=== PATIENT | female | born 1955 | race African-American/Black ===

== ENCOUNTER 2019-03-07 02:37 | Observation (INO) ==
[2019-03-07] MEDS ORDERED: PANTOPRAZOLE 40 MG VIAL IV STA (03:08)
[2019-03-07 03:15] LABS: Basophils % 0.4 % (0.0-0.8); Eosinophils # 0.1 10*3/uL (0.0-0.87); Eosinophils % 0.9 % (0.00-10.9); Hematocrit 34.1 VOL% (35.7-47.0); Immature Granulocytes % 0.9 %; Immature Granulocytes Absolute 0.05 #; Lymphocytes % 36.7 % (21.3-54.2); Mean Corpuscular HGB Conc 35.2 GM/DL (32-36); Mean Corpuscular Volume 88.8 FL (87-102); Mean Platelet Volume 8.8 FL (9.6-12.0); Monocytes % 13.5 % (1.7-12.7); Neutrophils % 47.6 % (38.7-73.9); Platelet Count 239 T/CUMM (130-400); Red Blood Count 3.84 MC/CUMM (3.8-5.5); Red Cell Distribution Width 12.6 % (9.3-17.3); White Blood Count 5.6 T/CUMM (4-12)
[2019-03-07 03:34] LABS: Albumin 3.2 G/DL (3.4-5.0); Bilirubin,Total 0.5 MG/DL (0.2-1.0); Calcium 8.1 MG/DL (8.5-10.1); Osmolality,Calculated 241.1 MOS/KG (273-304); Total Protein 6.6 G/DL (6.4-8.3)
[2019-03-07] MEDS ORDERED: NITROGLYCERIN SL 0.4 MG TABLET SL PRN (07:23)
[2019-03-07] MEDS ORDERED: traZODone 50 MG TABLET PO PRN (07:23)
[2019-03-07] MEDS ORDERED: ONDANSETRON 4 MG/2 ML VIAL IV PRN (07:23)
[2019-03-07] MEDS ORDERED: ACETAMINOPHEN 325 MG TABLET PO PRN (07:23)
[2019-03-07] MEDS ORDERED: MORPHINE 4 MG/1 ML VIAL IV PRN (07:23)
[2019-03-07] MEDS ORDERED: INFLUENZA VIRUS VACCINE 0.5 ML SYRINGE IM ONE (07:34)
[2019-03-07 07:58] LABS: Risk Ratio 1.96; Thyroid Stimulating Hormone 0.412 uIU/ml (0.358-3.74); VLDL CHOLESTEROL 21.2 MG/DL
[2019-03-07] MEDS: ENOXAPARIN 40 MG/0.4 ML SYRINGE SUBCUT SCH (08:11)
[2019-03-07] MEDS: ACETAMINOPHEN 500 MG TABLET PO SCH (08:11)
[2019-03-07] MEDS: BISACODYL 5 MG TABLET PO SCH (08:12)
[2019-03-07] MEDS: METOPROLOL TARTRATE 100 MG TABLET PO SCH (08:12)
[2019-03-07] MEDS: PANTOPRAZOLE 40 MG TABLET PO SCH (08:12)
[2019-03-07] MEDS: DEXAMETHASONE 0.5 MG TABLET PO SCH (08:12)
[2019-03-07] MEDS: amLODIPine 10 MG TABLET PO SCH (08:12)
[2019-03-07] MEDS: SODIUM CHLORIDE 0.9% 1,000 ML IV SCH ×2 (08:13→16:37)
[2019-03-07 08:44] LABS: Apearance,Urine CLEAR (Clear); Bacteria,Urine Occasional /HPF (Few); Bilirubin,Urine Negative (Negative); Blood, Urine Negative (Negative); Glucose,Urine (UA) Negative (Negative); Ketones,Urine Negative (Negative); Nitrite,Urine Negative (Negative); Protein,Urine Negative; RBC,Urine 1 /HPF (0-4); Squamous Epithelial Cell,Urine Occasional /HPF (0-10); Urine Color Straw (Yellow); Urine Specific Gravity 1.005 (1.001-1.035); Urine Urobilinogen < 2.0 EU/DL (0.2-1.0); WBC,Urine <1 /HPF (0-6)
[2019-03-07 10:24] LABS: Osmolality,Calculated 242.1 MOS/KG (273-304)
[2019-03-07 19:27] LABS: Calcium 7.8 MG/DL (8.5-10.1); Osmolality,Calculated 251.5 MOS/KG (273-304)
[2019-03-07 21:11] LABS: Calcium 7.8 MG/DL (8.5-10.1); Osmolality,Calculated 254.2 MOS/KG (273-304)
[2019-03-08] MEDS: SODIUM CHLORIDE 0.9% 1,000 ML IV SCH ×3 (00:24→16:41)
[2019-03-08 04:36] LABS: Basophils % 0.2 % (0.0-0.8); Hematocrit 32.1 VOL% (35.7-47.0); Hemoglobin 11.2 GM/DL (12.0-16.0); Immature Granulocytes % 0.7 %; Immature Granulocytes Absolute 0.03 #; Lymphocytes # 0.9 10*3/uL (1.4-4.0); Lymphocytes % 21.9 % (21.3-54.2); Mean Corpuscular HGB Conc 34.9 GM/DL (32-36); Mean Corpuscular Volume 89.2 FL (87-102); Mean Platelet Volume 9.1 FL (9.6-12.0); Monocytes % 10.8 % (1.7-12.7); Neutrophils % 66.4 % (38.7-73.9); Platelet Count 260 T/CUMM (130-400); Red Cell Distribution Width 12.5 % (9.3-17.3); White Blood Count 4.1 T/CUMM (4-12)
[2019-03-08 05:11] LABS: Calcium 7.6 MG/DL (8.5-10.1); Osmolality,Calculated 261.5 MOS/KG (273-304)
[2019-03-08] MEDS: CALCIUM (CITRATE) 200 MG TABLET PO SCH ×2 (08:35→21:35)
[2019-03-08] MEDS: DEXAMETHASONE 0.5 MG TABLET PO SCH (08:36)
[2019-03-08] MEDS: amLODIPine 10 MG TABLET PO SCH (08:36)
[2019-03-08] MEDS: ACETAMINOPHEN 500 MG TABLET PO SCH (08:36)
[2019-03-08] MEDS: PANTOPRAZOLE 40 MG TABLET PO SCH (08:36)
[2019-03-08] MEDS: ENOXAPARIN 40 MG/0.4 ML SYRINGE SUBCUT SCH (08:37)
[2019-03-08] MEDS: BISACODYL 5 MG TABLET PO SCH (08:37)
[2019-03-08] MEDS: METOPROLOL TARTRATE 100 MG TABLET PO SCH (08:37)
[2019-03-09] MEDS ORDERED: METOPROLOL TARTRATE 5 MG/5 ML VIAL IV ONE (03:00)
[2019-03-09] MEDS: SODIUM CHLORIDE 0.9% 1,000 ML IV SCH ×2 (03:09→07:24)
[2019-03-09 05:35] LABS: Calcium 7.9 MG/DL (8.5-10.1); Osmolality,Calculated 273.5 MOS/KG (273-304)
[2019-03-09 05:41] LABS: Basophils % 0.1 % (0.0-0.8); Hematocrit 30.2 VOL% (35.7-47.0); Hemoglobin 10.1 GM/DL (12.0-16.0); Immature Granulocytes % 0.2 %; Immature Granulocytes Absolute 0.02 #; Lymphocytes # 1.2 10*3/uL (1.4-4.0); Lymphocytes % 13.2 % (21.3-54.2); Mean Corpuscular HGB Conc 33.4 GM/DL (32-36); Mean Corpuscular Volume 92.6 FL (87-102); Mean Platelet Volume 9.4 FL (9.6-12.0); Monocytes % 5.4 % (1.7-12.7); Neutrophils % 81.1 % (38.7-73.9); Platelet Count 318 T/CUMM (130-400); Red Blood Count 3.26 MC/CUMM (3.8-5.5); Red Cell Distribution Width 13.2 % (9.3-17.3); White Blood Count 8.9 T/CUMM (4-12)
[2019-03-09] MEDS: CALCIUM (CITRATE) 200 MG TABLET PO SCH ×4 (07:23→20:31)
[2019-03-09] MEDS: DEXAMETHASONE 0.5 MG TABLET PO SCH ×2 (07:24→08:39)
[2019-03-09] MEDS: BISACODYL 5 MG TABLET PO SCH ×2 (07:24→08:40)
[2019-03-09] MEDS: ACETAMINOPHEN 500 MG TABLET PO SCH ×2 (07:28→08:41)
[2019-03-09] MEDS: METOPROLOL TARTRATE 100 MG TABLET PO SCH ×2 (07:28→08:40)
[2019-03-09] MEDS: PANTOPRAZOLE 40 MG TABLET PO SCH ×2 (07:29→08:41)
[2019-03-09] MEDS: amLODIPine 10 MG TABLET PO SCH ×2 (07:29→08:41)
[2019-03-09] MEDS: ENOXAPARIN 40 MG/0.4 ML SYRINGE SUBCUT SCH ×2 (07:30→08:41)
[2019-03-09] MEDS ORDERED: MAGNESIUM SULF RIDER 2 GM in PREMIX 1 EACH IV PRN (12:12)
[2019-03-09] MEDS ORDERED: MAGNESIUM SULF RIDER 4 GM in PREMIX 1 EACH IV PRN (12:12)
[2019-03-09] MEDS: ENOXAPARIN 60 MG/0.6 ML SYRINGE SUBCUT SCH (18:38)
[2019-03-10 06:05] LABS: Basophils % 0.1 % (0.0-0.8); Hematocrit 28.9 VOL% (35.7-47.0); Hemoglobin 9.9 GM/DL (12.0-16.0); Immature Granulocytes % 0.4 %; Immature Granulocytes Absolute 0.03 #; Lymphocytes # 1.3 10*3/uL (1.4-4.0); Lymphocytes % 18.6 % (21.3-54.2); Mean Corpuscular HGB Conc 34.3 GM/DL (32-36); Mean Corpuscular Volume 92.6 FL (87-102); Mean Platelet Volume 9.4 FL (9.6-12.0); Neutrophils % 72.9 % (38.7-73.9); Platelet Count 311 T/CUMM (130-400); Red Blood Count 3.12 MC/CUMM (3.8-5.5); Red Cell Distribution Width 13.6 % (9.3-17.3); White Blood Count 7.1 T/CUMM (4-12)
[2019-03-10] MEDS: ENOXAPARIN 60 MG/0.6 ML SYRINGE SUBCUT SCH (06:26)
[2019-03-10 06:44] LABS: Calcium 8.6 MG/DL (8.5-10.1)
[2019-03-10] MEDS: DEXAMETHASONE 0.5 MG TABLET PO SCH (09:13)
[2019-03-10] MEDS: ACETAMINOPHEN 500 MG TABLET PO SCH (09:13)
[2019-03-10] MEDS: METOPROLOL TARTRATE 100 MG TABLET PO SCH (09:13)
[2019-03-10] MEDS: PANTOPRAZOLE 40 MG TABLET PO SCH (09:14)
[2019-03-10] MEDS: BISACODYL 5 MG TABLET PO SCH (09:14)
[2019-03-10] MEDS: CALCIUM (CITRATE) 200 MG TABLET PO SCH (09:14)
[2019-03-10] MEDS: amLODIPine 10 MG TABLET PO SCH (09:14)
[2019-03-10] MEDS ORDERED: POTASSIUM PHOS/SOD PHOS POWDER 250 MG PACK PO ONE (09:35)
[2019-03-10 11:20] VITALS: BP 131/60
[2019-03-10] MEDS ORDERED: ASPIRIN EC 81 MG TABLET PO SCH (11:20)
== END 2019-03-10 16:27 | disposition home or self-care (01) ==
LOC: N.EDINP 02:37 → N.ED 02:37 → SUATTDRO 06:01 → N.TELEN 06:36
PROVIDERS: ADMIT Internal Medicine; ATTEND Hospitalist

== ENCOUNTER 2019-10-05 12:20 | Inpatient (IN) ==
[2019-10-05] MEDS ORDERED: SODIUM CHLORIDE 0.9% 1,000 ML IV STA (12:51)
[2019-10-05 13:28] LABS: Basophils % 0.3 % (0.0-0.8); Eosinophils % 0.3 % (0.00-10.9); Hematocrit 38.4 VOL% (35.7-47.0); Hemoglobin 11.8 GM/DL (12.0-16.0); Immature Granulocytes % 0.9 %; Lymphocytes # 2.3 10*3/uL (1.4-4.0); Lymphocytes % 21.2 % (21.3-54.2); Mean Corpuscular HGB Conc 30.7 GM/DL (32-36); Mean Corpuscular Volume 73.1 FL (87-102); Mean Platelet Volume 9.1 FL (9.6-12.0); Monocytes % 8.2 % (1.7-12.7); Neutrophils % 69.1 % (38.7-73.9); Platelet Count 341 T/CUMM (130-400); Red Blood Count 5.25 MC/CUMM (3.8-5.5); Red Cell Distribution Width 21.4 % (9.3-17.3); White Blood Count 10.8 T/CUMM (4-12)
[2019-10-05] MEDS ORDERED: ONDANSETRON 4 MG/2 ML VIAL ONE (14:03)
[2019-10-05] MEDS ORDERED: HYDROmorphone 2 MG/1 ML VIAL ONE (14:04)
[2019-10-05] MEDS ORDERED: FAMOTIDINE 20 MG/2 ML VIAL IV STA (14:08)
[2019-10-05] MEDS ORDERED: PIPERACILLIN/TAZOBACTAM 3,375 MG in SODIUM CHLORIDE 0.9% 100 ML IV STA ×2 (14:09→14:31)
[2019-10-05] MEDS ORDERED: ONDANSETRON 4 MG/2 ML VIAL IV STA (14:09)
[2019-10-05] MEDS ORDERED: HYDROmorphone 2 MG/1 ML VIAL IV STA (14:09)
[2019-10-05 14:11] LABS: Alanine Aminotransferase 14 U/L (13-56); Albumin 2.6 G/DL (3.4-5.0); Alkaline Phosphatase 63 U/L (45-117); Aspartate Amino Transferase 7 U/L (0-37); Bilirubin,Total < 0.39 MG/DL (0.2-1.0); Blood Urea Nitrogen 18 MG/DL (7-18); Calcium 8.3 MG/DL (8.5-10.1); Estimated Glom Filtration Rate 59 ML/MIN; Glucose 107 MG/DL (74-106); Osmolality,Calculated 269.2 MOS/KG (273-304); Total Protein 6.6 G/DL (6.4-8.3)
[2019-10-05] MEDS ORDERED: metroNIDAZOLE INJ 500 MG in PREMIX 1 EACH IV ONE (14:24)
[2019-10-05] MEDS ORDERED: KETOROLAC 15 MG/1 ML VIAL IV PRN (14:27)
[2019-10-05] MEDS ORDERED: ONDANSETRON 4 MG/2 ML VIAL IV PRN (14:27)
[2019-10-05] MEDS ORDERED: ACETAMINOPHEN 325 MG TABLET PO PRN (14:27)
[2019-10-05] MEDS ORDERED: BISACODYL 5 MG TABLET PO PRN (14:27)
[2019-10-05] MEDS ORDERED: ALBUTEROL/IPRATROPIUM 3 ML NEB RESP TX PRN (14:27)
[2019-10-05] MEDS ORDERED: BUPIVACAINE 0.25% /EPI 10 ML VIAL ONE (14:38)
[2019-10-05] MEDS ORDERED: LIDOCAINE 1%/EPI INJ 20 ML VIAL ONE (14:38)
[2019-10-05] MEDS ORDERED: TISSUE ADHESIVE 1 EACH APPLICATOR TOP ONE (14:38)
[2019-10-05] MEDS ORDERED: PANTOPRAZOLE 40 MG VIAL IV STA (14:49)
[2019-10-05] MEDS ORDERED: SODIUM CHLORIDE 0.9% 100 ML IV ONE (15:07)
[2019-10-05] MEDS ORDERED: BUPIVACAINE MPF 0.5% /EPI 30 ML VIAL ONE (15:07)
[2019-10-05] MEDS ORDERED: DEXAMETHASONE 4 MG/1 ML VIAL ONE (15:07)
[2019-10-05] MEDS ORDERED: SEVOFLURANE 1 UNIT/15 MINUTE INH ONE (17:38)
[2019-10-05] MEDS ORDERED: CALCIUM CHLORIDE 1,000 MG/10 ML VIAL IV ONE (17:38)
[2019-10-05] MEDS ORDERED: propofoL 200 MG/20 ML VIAL IV ONE (17:38)
[2019-10-05] MEDS ORDERED: ALBUMIN 5% 12.5 GM/250 ML VIAL IV ONE (17:38)
[2019-10-05] MEDS ORDERED: ePHEDrine 50 MG/ML AMP ONE (17:39)
[2019-10-05] MEDS ORDERED: ROCURONIUM 100 MG/10 ML VIAL IV ONE (17:39)
[2019-10-05] MEDS ORDERED: SODIUM CHLORIDE 0.9% 1,000 ML IV ONE (17:39)
[2019-10-05] MEDS ORDERED: SUCCINYLCHOLINE 200 MG/10 ML VIAL ONE (17:39)
[2019-10-05] MEDS ORDERED: KETAMINE 500 MG/10 ML VIAL ONE (17:39)
[2019-10-05] MEDS ORDERED: LACTATED RINGERS 1,000 ML IV ONE (17:39)
[2019-10-05] MEDS ORDERED: PHENYLEPHRINE 1 MG/10 ML SYRINGE IV ONE (17:39)
[2019-10-05] MEDS ORDERED: HYDROCORTISONE 100 MG VIAL ONE (17:39)
[2019-10-05] MEDS ORDERED: GLYCOPYRROLATE 0.4 MG/2 ML VIAL ONE (17:40)
[2019-10-05] MEDS ORDERED: NEOSTIGMINE 10 MG/10 ML VIAL ONE (17:40)
[2019-10-05] MEDS ORDERED: MIDAZOLAM 2 MG/2 ML VIAL ONE (17:43)
[2019-10-05] MEDS: PIPERACILLIN/TAZOBACTAM 3,375 MG in SODIUM CHLORIDE 0.9% 100 ML IV SCH (22:55)
[2019-10-05] MEDS: CLARITHROMYCIN 500 MG TABLET PO SCH (22:56)
[2019-10-05] MEDS: AMOXICILLIN 500 MG CAPSULE PO SCH (22:56)
[2019-10-05] MEDS: HYDROmorphone 2 MG/1 ML VIAL IV PRN (23:35)
[2019-10-06] MEDS: HYDROmorphone 2 MG/1 ML VIAL IV PRN ×3 (04:09→17:48)
[2019-10-06] MEDS: LACTATED RINGERS 1,000 ML IV SCH ×4 (04:13→16:04)
[2019-10-06] MEDS: PANTOPRAZOLE 40 MG VIAL IV SCH ×3 (04:22→20:31)
[2019-10-06] MEDS: PIPERACILLIN/TAZOBACTAM 3,375 MG in SODIUM CHLORIDE 0.9% 100 ML IV SCH ×3 (05:18→20:33)
[2019-10-06 07:02] LABS: Basophils % 0.1 % (0.0-0.8); Hematocrit 36.3 VOL% (35.7-47.0); Immature Granulocytes % 0.6 %; Immature Granulocytes Absolute 0.08 #; Lymphocytes # 0.7 10*3/uL (1.4-4.0); Lymphocytes % 4.7 % (21.3-54.2); Mean Corpuscular HGB Conc 30.6 GM/DL (32-36); Mean Corpuscular Volume 74.2 FL (87-102); Monocytes % 8.6 % (1.7-12.7); Platelet Count 272 T/CUMM (130-400); Red Blood Count 4.89 MC/CUMM (3.8-5.5); Red Cell Distribution Width 21.8 % (9.3-17.3); White Blood Count 14.1 T/CUMM (4-12)
[2019-10-06 07:03] LABS: Hemoglobin 11.1 GM/DL (12.0-16.0)
[2019-10-06 07:08] LABS: Band Neutrophils 4 % (0-10); Hypochromasia 1+; Lymphocytes 3 % (20-55); Ovalocytes Slight; Platelet Estimate Adequate; Segmented Neutrophils 82 % (50-85); Total Cells Counted 100
[2019-10-06] MEDS: AMOXICILLIN 500 MG CAPSULE PO SCH ×2 (09:31→20:32)
[2019-10-06] MEDS: CLARITHROMYCIN 500 MG TABLET PO SCH ×2 (09:32→20:36)
[2019-10-06] MEDS: DEXAMETHASONE 0.5 MG TABLET PO SCH (09:32)
[2019-10-06] MEDS: METOPROLOL TARTRATE 100 MG TABLET PO SCH (09:32)
[2019-10-06] MEDS: amLODIPine 10 MG TABLET PO SCH (09:32)
[2019-10-06] MEDS: ENOXAPARIN 30 MG/0.3 ML SYRINGE SUBCUT SCH (16:04)
[2019-10-06 17:49] LABS: Albumin 2.6 G/DL (3.4-5.0); Bilirubin,Total 0.8 MG/DL (0.2-1.0); Calcium 9.3 MG/DL (8.5-10.1); Osmolality,Calculated 268.2 MOS/KG (273-304)
[2019-10-07] MEDS: HYDROmorphone 2 MG/1 ML VIAL IV PRN ×3 (00:41→23:09)
[2019-10-07] MEDS: LACTATED RINGERS 1,000 ML IV SCH ×2 (04:17→10:45)
[2019-10-07] MEDS: PIPERACILLIN/TAZOBACTAM 3,375 MG in SODIUM CHLORIDE 0.9% 100 ML IV SCH ×3 (04:19→21:14)
[2019-10-07 06:12] LABS: Basophils % 0.2 % (0.0-0.8); Hemoglobin 9.7 GM/DL (12.0-16.0); Immature Granulocytes % 0.8 %; Immature Granulocytes Absolute 0.16 #; Lymphocytes # 0.8 10*3/uL (1.4-4.0); Lymphocytes % 3.9 % (21.3-54.2); Mean Corpuscular HGB Conc 30.3 GM/DL (32-36); Mean Corpuscular Volume 73.6 FL (87-102); Mean Platelet Volume 9.9 FL (9.6-12.0); Monocytes % 5.9 % (1.7-12.7); Neutrophils % 89.2 % (38.7-73.9); Platelet Count 290 T/CUMM (130-400); Red Blood Count 4.35 MC/CUMM (3.8-5.5); Red Cell Distribution Width 21.5 % (9.3-17.3); White Blood Count 19.6 T/CUMM (4-12)
[2019-10-07 06:32] LABS: Calcium 8.8 MG/DL (8.5-10.1); Osmolality,Calculated 260.8 MOS/KG (273-304)
[2019-10-07 06:37] LABS: Band Neutrophils 8 % (0-10); Hypochromasia 1+; Lymphocytes 3 % (20-55); Microcytosis 1+; Segmented Neutrophils 84 % (50-85); Target Cells Slight; Total Cells Counted 100
[2019-10-07 06:38] LABS: Acanthocytes Few; Burr Cells Slight; Platelet Estimate Normal
[2019-10-07] MEDS ORDERED: LACTATED RINGERS 1,000 ML IV ONE (07:57)
[2019-10-07] MEDS ORDERED: SODIUM CHLORIDE 0.9% 1,000 ML IV ONE (08:13)
[2019-10-07] MEDS: PANTOPRAZOLE 40 MG VIAL IV SCH ×3 (09:40→21:35)
[2019-10-07] MEDS: amLODIPine 10 MG TABLET PO SCH ×2 (09:41→15:15)
[2019-10-07] MEDS: DEXAMETHASONE 0.5 MG TABLET PO SCH ×2 (09:41→15:11)
[2019-10-07] MEDS: METOPROLOL TARTRATE 100 MG TABLET PO SCH ×2 (09:41→15:11)
[2019-10-07] MEDS: CLARITHROMYCIN 500 MG TABLET PO SCH ×3 (09:41→21:14)
[2019-10-07] MEDS: AMOXICILLIN 500 MG CAPSULE PO SCH ×3 (09:42→21:14)
[2019-10-07] MEDS: SODIUM CHLORIDE 0.9% 1,000 ML IV SCH ×2 (09:42→19:15)
[2019-10-07] MEDS: ENOXAPARIN 30 MG/0.3 ML SYRINGE SUBCUT SCH (15:09)
[2019-10-08] MEDS: SODIUM CHLORIDE 0.9% 1,000 ML IV SCH ×4 (02:17→23:40)
[2019-10-08] MEDS: HYDROmorphone 2 MG/1 ML VIAL IV PRN ×2 (04:00→20:05)
[2019-10-08] MEDS: PIPERACILLIN/TAZOBACTAM 3,375 MG in SODIUM CHLORIDE 0.9% 100 ML IV SCH ×3 (05:10→21:54)
[2019-10-08 06:48] LABS: Basophils % 0.1 % (0.0-0.8); Hematocrit 30.9 VOL% (35.7-47.0); Hemoglobin 9.8 GM/DL (12.0-16.0); Immature Granulocytes % 1.7 %; Immature Granulocytes Absolute 0.38 #; Lymphocytes # 0.6 10*3/uL (1.4-4.0); Lymphocytes % 2.9 % (21.3-54.2); Mean Corpuscular HGB Conc 31.7 GM/DL (32-36); Mean Corpuscular Volume 72.4 FL (87-102); Monocytes % 5.6 % (1.7-12.7); NRBC # 0.06 10*3/uL; Neutrophils % 89.7 % (38.7-73.9); Platelet Count 335 T/CUMM (130-400); Red Blood Count 4.27 MC/CUMM (3.8-5.5); Red Cell Distribution Width 21.2 % (9.3-17.3); White Blood Count 22.3 T/CUMM (4-12)
[2019-10-08 07:07] LABS: Calcium 8.3 MG/DL (8.5-10.1); Osmolality,Calculated 260.8 MOS/KG (273-304)
[2019-10-08 07:19] LABS: Band Neutrophils 6 % (0-10); Lymphocytes 3 % (20-55); Segmented Neutrophils 87 % (50-85); Total Cells Counted 100
[2019-10-08 07:22] LABS: Anisocytosis 1+; Atypical Lymphocytes 1+; Hypersegmented Neutrophil Few; Hypochromasia 1+; Microcytosis 1+; Ovalocytes 1+; Platelet Estimate Normal
[2019-10-08] MEDS ORDERED: METOPROLOL TARTRATE 5 MG/5 ML VIAL IV ONE ×2 (09:43→14:34)
[2019-10-08] MEDS ORDERED: cefOXitin 2,000 MG in SYRINGE 1 EACH IV ONE (09:45)
[2019-10-08] MEDS: METOPROLOL TARTRATE 100 MG TABLET PO SCH (10:07)
[2019-10-08] MEDS ORDERED: DILTIAZEM 50 MG/10 ML VIAL IV ONE (11:07)
[2019-10-08] MEDS ORDERED: DILTIAZEM 25 MG/5 ML VIAL IV ONE (11:15)
[2019-10-08] MEDS ORDERED: DEXTROSE 10% 250 ML BAG IV ONE (11:21)
[2019-10-08] MEDS ORDERED: DEXTROSE 10% 250 ML IV ONE (11:23)
[2019-10-08] MEDS: dilTIAZem Drip 125 MG/125 ML PREMIX IV SCH ×2 (11:40→21:57)
[2019-10-08] MEDS: AMOXICILLIN 500 MG CAPSULE PO SCH (11:52)
[2019-10-08] MEDS: DEXAMETHASONE 0.5 MG TABLET PO SCH (11:53)
[2019-10-08] MEDS: amLODIPine 10 MG TABLET PO SCH (11:53)
[2019-10-08] MEDS: CLARITHROMYCIN 500 MG TABLET PO SCH (11:53)
[2019-10-08] MEDS: PANTOPRAZOLE 40 MG VIAL IV SCH ×2 (11:54→21:45)
[2019-10-08] MEDS ORDERED: DEXMEDETOMIDINE 200 MCG/2 ML VIAL ONE (12:26)
[2019-10-08] MEDS ORDERED: SUGAMMADEX 200 MG/2 ML VIAL IV ONE (13:10)
[2019-10-08 14:19] LABS: Apearance,Urine CLEAR (Clear); Bilirubin,Urine Negative (Negative); Blood, Urine Negative (Negative); Glucose,Urine (UA) 50 mg/dL (Negative); Ketones,Urine Negative (Negative); Nitrite,Urine Negative (Negative); Protein,Urine Negative; RBC,Urine 1 /HPF (0-4); Urine Color Yellow (Yellow); Urine Specific Gravity 1.015 (1.001-1.035); Urine Urobilinogen < 2.0 EU/DL (0.2-1.0); WBC,Urine 1 /HPF (0-6)
[2019-10-08] MEDS ORDERED: ESMOLOL 100 MG/10 ML VIAL IV ONE (14:34)
[2019-10-08] MEDS ORDERED: PHENYLEPHRINE DRIP 20 MG/250 ML PREMIX IV ONE (14:34)
[2019-10-08] MEDS ORDERED: fentaNYL 100 MCG/2 ML VIAL ONE (14:34)
[2019-10-08] MEDS ORDERED: DESFLURANE 1 UNIT/15 MINUTE INH ONE (14:34)
[2019-10-08] MEDS ORDERED: LACTATED RINGERS 1,000 ML IV ONE (14:35)
[2019-10-08] MEDS ORDERED: ETOMIDATE 40 MG/20 ML VIAL IV ONE (14:35)
[2019-10-08] MEDS ORDERED: ROCURONIUM 100 MG/10 ML VIAL IV ONE (14:35)
[2019-10-08] MEDS ORDERED: SUCCINYLCHOLINE 200 MG/10 ML VIAL ONE (14:35)
[2019-10-08] MEDS ORDERED: HYDROmorphone 2 MG/1 ML VIAL ONE (14:37)
[2019-10-08] MEDS ORDERED: ONDANSETRON 4 MG/2 ML VIAL ONE (14:37)
[2019-10-08] MEDS ORDERED: ONDANSETRON 4 MG/2 ML VIAL IV PRN (14:42)
[2019-10-08] MEDS ORDERED: HYDROmorphone 2 MG/1 ML VIAL IV PRN (14:42)
[2019-10-08] MEDS: ENOXAPARIN 30 MG/0.3 ML SYRINGE SUBCUT SCH (15:52)
[2019-10-08 19:34] LABS: Basophils % 0.2 % (0.0-0.8); Hematocrit 32.8 VOL% (35.7-47.0); Hemoglobin 9.8 GM/DL (12.0-16.0); Immature Granulocytes % 0.8 %; Immature Granulocytes Absolute 0.13 #; Lymphocytes # 0.6 10*3/uL (1.4-4.0); Lymphocytes % 3.4 % (21.3-54.2); Mean Corpuscular HGB Conc 29.9 GM/DL (32-36); Mean Corpuscular Volume 75.6 FL (87-102); NRBC # 0.07 10*3/uL; Neutrophils % 89.6 % (38.7-73.9); Platelet Count 261 T/CUMM (130-400); Red Blood Count 4.34 MC/CUMM (3.8-5.5); Red Cell Distribution Width 21.3 % (9.3-17.3); White Blood Count 16.1 T/CUMM (4-12)
[2019-10-08 19:54] LABS: Calcium 8.2 MG/DL (8.5-10.1); Osmolality,Calculated 261.8 MOS/KG (273-304)
[2019-10-08 20:49] LABS: Anisocytosis 1+; Lymphocytes 2 % (20-55); Microcytosis 1+; Nucleated Red Blood Cells 1 (0-5); Segmented Neutrophils 94 % (50-85); Total Cells Counted 100
[2019-10-08 20:50] LABS: Hypochromasia Slight; Platelet Estimate Normal; Reactive Lymphocytes Slight
[2019-10-08] MEDS ORDERED: MAGNESIUM SULF RIDER 4 GM in PREMIX 1 EACH IV PRN (23:38)
[2019-10-09] MEDS: HYDROmorphone 2 MG/1 ML VIAL IV PRN ×6 (00:16→23:30)
[2019-10-09] MEDS: MAGNESIUM SULF RIDER 2 GM in PREMIX 1 EACH IV PRN ×2 (00:17→03:01)
[2019-10-09] MEDS: PIPERACILLIN/TAZOBACTAM 3,375 MG in SODIUM CHLORIDE 0.9% 100 ML IV SCH ×3 (04:50→21:23)
[2019-10-09 06:34] LABS: Basophils % 0.2 % (0.0-0.8); Hematocrit 29.6 VOL% (35.7-47.0); Hemoglobin 9.3 GM/DL (12.0-16.0); Immature Granulocytes % 1.4 %; Immature Granulocytes Absolute 0.26 #; Lymphocytes # 0.6 10*3/uL (1.4-4.0); Mean Corpuscular HGB Conc 31.4 GM/DL (32-36); Mean Corpuscular Volume 71.5 FL (87-102); Mean Platelet Volume 9.2 FL (9.6-12.0); Monocytes % 9.2 % (1.7-12.7); NRBC # 0.17 10*3/uL; Neutrophils % 86.2 % (38.7-73.9); Platelet Count 316 T/CUMM (130-400); Red Blood Count 4.14 MC/CUMM (3.8-5.5); Red Cell Distribution Width 21.1 % (9.3-17.3); White Blood Count 19.2 T/CUMM (4-12)
[2019-10-09 07:04] LABS: Calcium 7.7 MG/DL (8.5-10.1); Osmolality,Calculated 266.2 MOS/KG (273-304)
[2019-10-09 07:15] LABS: Hypochromasia 1+; Lymphocytes 6 % (20-55); Microcytosis 1+; Nucleated Red Blood Cells 2 (0-5); Segmented Neutrophils 88 % (50-85); Total Cells Counted 100
[2019-10-09 07:16] LABS: Acanthocytes Few; Ovalocytes Slight; Platelet Estimate Normal
[2019-10-09] MEDS: DEXAMETHASONE 0.5 MG TABLET PO SCH (08:09)
[2019-10-09] MEDS: amLODIPine 10 MG TABLET PO SCH (08:09)
[2019-10-09] MEDS: METOPROLOL TARTRATE 100 MG TABLET PO SCH (08:09)
[2019-10-09] MEDS: SODIUM CHLORIDE 0.9% 1,000 ML IV SCH ×2 (08:12→08:30)
[2019-10-09] MEDS: PANTOPRAZOLE 40 MG VIAL IV SCH ×2 (08:29→21:24)
[2019-10-09] MEDS: dilTIAZem Drip 125 MG/125 ML PREMIX IV SCH ×2 (10:26→10:45)
[2019-10-09] MEDS: POTASSIUM CHLORIDE IV SCH ×2 (10:27→21:44)
[2019-10-09] MEDS: MAGNESIUM SULF IV SCH ×2 (10:27→21:44)
[2019-10-09] MEDS: [UNRECOGNIZED DRUG - OTHER] IV SCH ×2 (10:27→21:44)
[2019-10-09] MEDS: METOPROLOL TARTRATE 5 MG/5 ML VIAL IV SCH ×2 (12:25→18:07)
[2019-10-09] MEDS: ENOXAPARIN 40 MG/0.4 ML SYRINGE SUBCUT SCH (15:58)
[2019-10-10] MEDS: METOPROLOL TARTRATE 5 MG/5 ML VIAL IV SCH ×5 (00:34→17:34)
[2019-10-10] MEDS: HYDROmorphone 2 MG/1 ML VIAL IV PRN ×5 (03:49→21:11)
[2019-10-10 05:39] LABS: Basophils % 0.2 % (0.0-0.8); Eosinophils % 0.1 % (0.00-10.9); Hematocrit 29.3 VOL% (35.7-47.0); Immature Granulocytes % 1.8 %; Immature Granulocytes Absolute 0.37 #; Lymphocytes # 0.8 10*3/uL (1.4-4.0); Lymphocytes % 3.7 % (21.3-54.2); Mean Corpuscular HGB Conc 30.7 GM/DL (32-36); Mean Corpuscular Volume 73.4 FL (87-102); Mean Platelet Volume 9.3 FL (9.6-12.0); Monocytes % 10.4 % (1.7-12.7); Neutrophils % 83.8 % (38.7-73.9); Platelet Count 320 T/CUMM (130-400); Red Blood Count 3.99 MC/CUMM (3.8-5.5); Red Cell Distribution Width 21.3 % (9.3-17.3); White Blood Count 20.5 T/CUMM (4-12)
[2019-10-10 05:43] LABS: Calcium 7.7 MG/DL (8.5-10.1)
[2019-10-10] MEDS: PIPERACILLIN/TAZOBACTAM 3,375 MG in SODIUM CHLORIDE 0.9% 100 ML IV SCH ×3 (05:58→21:10)
[2019-10-10 07:41] LABS: Lymphocytes 6 % (20-55); Platelet Estimate Normal; Segmented Neutrophils 83 % (50-85); Total Cells Counted 100
[2019-10-10 07:42] LABS: Anisocytosis 2+; Hypochromasia 2+; Microcytosis 2+; Ovalocytes 1+
[2019-10-10] MEDS: METOPROLOL TARTRATE 100 MG TABLET PO SCH (08:23)
[2019-10-10] MEDS: POTASSIUM CHLORIDE IV SCH ×2 (08:23→21:09)
[2019-10-10] MEDS: [UNRECOGNIZED DRUG - OTHER] IV SCH ×2 (08:23→21:09)
[2019-10-10] MEDS: amLODIPine 10 MG TABLET PO SCH (08:23)
[2019-10-10] MEDS: MAGNESIUM SULF IV SCH ×2 (08:23→21:09)
[2019-10-10] MEDS: DEXAMETHASONE 0.5 MG TABLET PO SCH (08:23)
[2019-10-10] MEDS: PANTOPRAZOLE 40 MG VIAL IV SCH ×2 (08:29→21:12)
[2019-10-10] MEDS: dilTIAZem Drip 125 MG/125 ML PREMIX IV SCH ×2 (12:15→23:56)
[2019-10-10] MEDS: ENOXAPARIN 40 MG/0.4 ML SYRINGE SUBCUT SCH (15:51)
[2019-10-11] MEDS: METOPROLOL TARTRATE 5 MG/5 ML VIAL IV SCH ×4 (00:29→17:45)
[2019-10-11] MEDS: HYDROmorphone 2 MG/1 ML VIAL IV PRN ×3 (03:27→17:48)
[2019-10-11] MEDS: PIPERACILLIN/TAZOBACTAM 3,375 MG in SODIUM CHLORIDE 0.9% 100 ML IV SCH ×3 (05:10→21:14)
[2019-10-11] MEDS: MAGNESIUM SULF IV SCH (08:28)
[2019-10-11] MEDS: POTASSIUM CHLORIDE IV SCH (08:28)
[2019-10-11] MEDS: [UNRECOGNIZED DRUG - OTHER] IV SCH (08:28)
[2019-10-11] MEDS: DEXAMETHASONE 0.5 MG TABLET PO SCH (09:02)
[2019-10-11] MEDS: DEXT 5% NACL 0.45% KCL 40 MEQ 40 MEQ/1,000 ML BAG IV SCH ×2 (09:02→21:15)
[2019-10-11] MEDS: PANTOPRAZOLE 40 MG VIAL IV SCH (09:02)
[2019-10-11] MEDS: METOPROLOL TARTRATE 100 MG TABLET PO SCH (09:02)
[2019-10-11] MEDS: amLODIPine 10 MG TABLET PO SCH (09:02)
[2019-10-11 09:28] LABS: Basophils # 0.1 10*3/uL (0.0-0.2); Basophils % 0.2 % (0.0-0.8); Eosinophils # 0.1 10*3/uL (0.0-0.87); Eosinophils % 0.3 % (0.00-10.9); Hematocrit 30.1 VOL% (35.7-47.0); Hemoglobin 9.1 GM/DL (12.0-16.0); Immature Granulocytes % 2.8 %; Immature Granulocytes Absolute 0.57 #; Lymphocytes # 1.1 10*3/uL (1.4-4.0); Lymphocytes % 5.4 % (21.3-54.2); Mean Corpuscular HGB Conc 30.2 GM/DL (32-36); Monocytes % 8.2 % (1.7-12.7); NRBC # 0.06 10*3/uL; Neutrophils % 83.1 % (38.7-73.9); Platelet Count 355 T/CUMM (130-400); Red Blood Count 4.07 MC/CUMM (3.8-5.5); Red Cell Distribution Width 22.1 % (9.3-17.3); White Blood Count 20.3 T/CUMM (4-12)
[2019-10-11 10:52] LABS: Lymphocytes 6 % (20-55); Segmented Neutrophils 85 % (50-85); Total Cells Counted 100
[2019-10-11 10:53] LABS: Hypochromasia 1+; Platelet Estimate Adequate
[2019-10-11 10:54] LABS: Bilirubin,Total 0.5 MG/DL (0.2-1.0); Calcium 8.3 MG/DL (8.5-10.1); Osmolality,Calculated 269.8 MOS/KG (273-304); Total Protein 6.2 G/DL (6.4-8.3)
[2019-10-11 11:02] LABS: Albumin 1.4 G/DL (3.4-5.0)
[2019-10-11] MEDS: dilTIAZem Drip 125 MG/125 ML PREMIX IV SCH (13:14)
[2019-10-11] MEDS: ENOXAPARIN 40 MG/0.4 ML SYRINGE SUBCUT SCH (15:37)
[2019-10-12] MEDS: METOPROLOL TARTRATE 5 MG/5 ML VIAL IV SCH ×4 (00:44→18:45)
[2019-10-12 00:48] LABS: ABG Base Excess -8.1 MMOL/L (-2.5-2.5); ABG HCO3 17.8 MMOL/L (20-26); ABG Oxygen Saturation 97.7 % (95-100); ABG PCO2 34.8 MM HG (35-48); ABG PH 7.308 (7.35-7.45); ABG TCO2 16.4 MMOL/L (23-27)
[2019-10-12] MEDS: dilTIAZem Drip 125 MG/125 ML PREMIX IV SCH ×2 (02:43→12:31)
[2019-10-12] MEDS: HYDROmorphone 2 MG/1 ML VIAL IV PRN ×4 (03:40→22:23)
[2019-10-12] MEDS: DEXT 5% NACL 0.45% KCL 40 MEQ 40 MEQ/1,000 ML BAG IV SCH (03:49)
[2019-10-12] MEDS: PIPERACILLIN/TAZOBACTAM 3,375 MG in SODIUM CHLORIDE 0.9% 100 ML IV SCH (06:16)
[2019-10-12] MEDS ORDERED: FUROSEMIDE 40 MG/4 ML VIAL IV ONE (07:25)
[2019-10-12] MEDS: PANTOPRAZOLE 40 MG VIAL IV SCH (08:36)
[2019-10-12] MEDS: amLODIPine 10 MG TABLET PO SCH (08:37)
[2019-10-12] MEDS: METOPROLOL TARTRATE 100 MG TABLET PO SCH (08:37)
[2019-10-12] MEDS: DEXAMETHASONE 0.5 MG TABLET PO SCH (08:37)
[2019-10-12 08:44] LABS: Basophils # 0.1 10*3/uL (0.0-0.2); Basophils % 0.2 % (0.0-0.8); Eosinophils # 0.1 10*3/uL (0.0-0.87); Eosinophils % 0.4 % (0.00-10.9); Hematocrit 31.1 VOL% (35.7-47.0); Hemoglobin 9.2 GM/DL (12.0-16.0); Immature Granulocytes % 3.5 %; Immature Granulocytes Absolute 0.88 #; Lymphocytes # 1.2 10*3/uL (1.4-4.0); Mean Corpuscular HGB Conc 29.6 GM/DL (32-36); Mean Corpuscular Volume 75.9 FL (87-102); Mean Platelet Volume 9.3 FL (9.6-12.0); Neutrophils % 81.9 % (38.7-73.9); Platelet Count 313 T/CUMM (130-400); Red Cell Distribution Width 22.5 % (9.3-17.3); White Blood Count 24.8 T/CUMM (4-12)
[2019-10-12 08:54] LABS: Albumin 1.3 G/DL (3.4-5.0); Bilirubin,Total 1.2 MG/DL (0.2-1.0); Osmolality,Calculated 267.8 MOS/KG (273-304)
[2019-10-12 09:03] LABS: Eosinophils 2 % (0-10); Lymphocytes 6 % (20-55); Platelet Estimate Adequate; Segmented Neutrophils 80 % (50-85); Total Cells Counted 100
[2019-10-12 09:04] LABS: Hypochromasia Slight
[2019-10-12] MEDS ORDERED: SODIUM POLYSTYRENE SULFATE 15 GM/60 ML BOTTLE PO ONE (09:57)
[2019-10-12] MEDS: MEROPENEM 2,000 MG in SODIUM CHLORIDE 0.9% 100 ML IV SCH ×3 (11:38→23:17)
[2019-10-12 13:16] LABS: Osmolality,Calculated 266.1 MOS/KG (273-304)
[2019-10-12] MEDS ORDERED: SODIUM BICARB INJ 50 MEQ in DEXTROSE 5% 1,000 ML IV SCH (14:00)
[2019-10-12 14:01] LABS: ABG Base Excess -11.7 MMOL/L (-2.5-2.5); ABG Oxygen Saturation 90.3 % (95-100); ABG PCO2 36.4 MM HG (35-48); ABG PH 7.227 (7.35-7.45); ABG PO2 70.2 MM HG (80-95); ABG TCO2 14.4 MMOL/L (23-27)
[2019-10-12] MEDS ORDERED: SODIUM BICARB INJ 150 MEQ in DEXTROSE 5% 1,000 ML IV SCH (14:18)
[2019-10-12] MEDS ORDERED: GLUCAGON 1 MG VIAL IM PRN (15:14)
[2019-10-12] MEDS ORDERED: DEXTROSE 10% 250 ML BAG IV PRN (15:14)
[2019-10-12] MEDS: ENOXAPARIN 40 MG/0.4 ML SYRINGE SUBCUT SCH (15:39)
[2019-10-12] MEDS: metroNIDAZOLE INJ 500 MG in PREMIX 1 EACH IV SCH ×2 (15:40→21:47)
[2019-10-12] MEDS: HYDROCORTISONE 100 MG VIAL IV SCH ×2 (15:40→21:47)
[2019-10-12] MEDS: VANCOMYCIN INJ 1,000 MG in SODIUM CHLORIDE 0.9% 250 ML IV SCH (15:41)
[2019-10-12 16:21] LABS: Apearance,Urine CLEAR (Clear); Bilirubin,Urine Negative (Negative); Blood, Urine Small mg/dL (Negative); Glucose,Urine (UA) Negative (Negative); Hyaline Casts,Urine 8 /LPF (0-3); Ketones,Urine Negative (Negative); Mucus,Urine Occasional /LPF (Occasional); Nitrite,Urine Negative (Negative); Protein,Urine Negative; RBC,Urine 3 /HPF (0-4); Squamous Epithelial Cell,Urine Occasional /HPF (0-10); Urine Color Yellow (Yellow); Urine Specific Gravity 1.011 (1.001-1.035); Urine Urobilinogen < 2.0 EU/DL (0.2-1.0); WBC,Urine 2 /HPF (0-6)
[2019-10-12] MEDS ORDERED: DEXTROSE 70% IV SCH (17:00)
[2019-10-12] MEDS ORDERED: MULTIVITAMIN IV SCH (17:00)
[2019-10-12] MEDS ORDERED: DEXTROSE 10% 1,000 ML IV PRN (17:00)
[2019-10-12] MEDS ORDERED: AMINO ACIDS IV SCH (17:00)
[2019-10-12] MEDS: INSULIN REGULAR 100 UNIT/ML SUBCUT SCH (18:45)
[2019-10-13] MEDS: METOPROLOL TARTRATE 5 MG/5 ML VIAL IV SCH ×5 (00:26→23:20)
[2019-10-13] MEDS: INSULIN REGULAR 100 UNIT/ML SUBCUT SCH ×5 (00:51→23:24)
[2019-10-13] MEDS: HYDROmorphone 2 MG/1 ML VIAL IV PRN ×4 (01:22→20:30)
[2019-10-13] MEDS ORDERED: SODIUM BICARB INJ 50 MEQ in SODIUM CHLORIDE 0.45% 1,000 ML IV SCH (02:30)
[2019-10-13] MEDS: VANCOMYCIN INJ 1,000 MG in SODIUM CHLORIDE 0.9% 250 ML IV SCH ×2 (04:14→15:45)
[2019-10-13 04:18] LABS: Basophils % 0.2 % (0.0-0.8); Hemoglobin 7.1 GM/DL (12.0-16.0); Immature Granulocytes Absolute 0.38 #; Lymphocytes # 0.8 10*3/uL (1.4-4.0); Lymphocytes % 4.2 % (21.3-54.2); Mean Corpuscular HGB Conc 30.9 GM/DL (32-36); Mean Corpuscular Volume 73.2 FL (87-102); Mean Platelet Volume 9.5 FL (9.6-12.0); Monocytes % 3.7 % (1.7-12.7); NRBC # 0.15 10*3/uL; Neutrophils % 89.9 % (38.7-73.9); Platelet Count 312 T/CUMM (130-400); Red Blood Count 3.14 MC/CUMM (3.8-5.5); Red Cell Distribution Width 21.5 % (9.3-17.3); White Blood Count 18.8 T/CUMM (4-12)
[2019-10-13 04:41] LABS: Calcium 7.6 MG/DL (8.5-10.1); Osmolality,Calculated 268.2 MOS/KG (273-304)
[2019-10-13 04:42] LABS: Lymphocytes 4 % (20-55); Nucleated Red Blood Cells 1 (0-5); Platelet Estimate Adequate; Segmented Neutrophils 92 % (50-85); Total Cells Counted 100
[2019-10-13 04:43] LABS: Hypochromasia 1+; Ovalocytes Slight
[2019-10-13 04:44] LABS: Alanine Aminotransferase 16 U/L (13-56); Albumin 1.5 G/DL (3.4-5.0); Alkaline Phosphatase 76 U/L (45-117); Aspartate Amino Transferase 16 U/L (0-37); Bilirubin,Indirect 0.2 MG/DL (0.0-1.0); Bilirubin,Total < 0.39 MG/DL (0.2-1.0)
[2019-10-13 04:46] LABS: Prealbumin 3.2 MG/DL (20-40)
[2019-10-13] MEDS: MAGNESIUM SULF RIDER 2 GM in PREMIX 1 EACH IV PRN ×2 (05:09→07:25)
[2019-10-13] MEDS: HYDROCORTISONE 100 MG VIAL IV SCH (06:31)
[2019-10-13] MEDS: metroNIDAZOLE INJ 500 MG in PREMIX 1 EACH IV SCH ×3 (06:31→23:23)
[2019-10-13] MEDS: PANTOPRAZOLE 40 MG VIAL IV SCH (08:37)
[2019-10-13] MEDS: amLODIPine 10 MG TABLET PO SCH (08:39)
[2019-10-13] MEDS: MEROPENEM 2,000 MG in SODIUM CHLORIDE 0.9% 100 ML IV SCH ×3 (08:39→23:24)
[2019-10-13 12:06] LABS: Hematocrit 22.6 VOL% (35.7-47.0); Hemoglobin 7.3 GM/DL (12.0-16.0)
[2019-10-13] MEDS ORDERED: POTASSIUM PHOSPHATE 15 MMOL in SODIUM CHLORIDE 0.9% 100 ML IV ONE (14:45)
[2019-10-13] MEDS: ENOXAPARIN 40 MG/0.4 ML SYRINGE SUBCUT SCH (15:45)
[2019-10-13] MEDS: DEXTROSE 70% IV SCH (17:45)
[2019-10-13] MEDS: MULTIVITAMIN IV SCH (17:45)
[2019-10-13] MEDS: AMINO ACIDS IV SCH (17:45)
[2019-10-13] MEDS: QUEtiapine 25 MG TABLET PO SCH (20:30)
[2019-10-14] MEDS ORDERED: DILTIAZEM 25 MG/5 ML VIAL IV ONE ×2 (01:18→01:28)
[2019-10-14] MEDS: dilTIAZem Drip 125 MG/125 ML PREMIX IV SCH ×2 (01:45→16:19)
[2019-10-14] MEDS: HYDROmorphone 2 MG/1 ML VIAL IV PRN ×3 (04:00→21:27)
[2019-10-14 04:57] LABS: Basophils % 0.1 % (0.0-0.8); Hematocrit 21.2 VOL% (35.7-47.0); Hemoglobin 6.8 GM/DL (12.0-16.0); Immature Granulocytes % 1.4 %; Lymphocytes # 0.7 10*3/uL (1.4-4.0); Lymphocytes % 3.4 % (21.3-54.2); Mean Corpuscular HGB Conc 32.1 GM/DL (32-36); Mean Corpuscular Volume 71.6 FL (87-102); Mean Platelet Volume 9.3 FL (9.6-12.0); Monocytes % 6.8 % (1.7-12.7); NRBC # 0.14 10*3/uL; Neutrophils % 88.3 % (38.7-73.9); Platelet Count 326 T/CUMM (130-400); Red Blood Count 2.96 MC/CUMM (3.8-5.5); Red Cell Distribution Width 21.2 % (9.3-17.3); White Blood Count 21.7 T/CUMM (4-12)
[2019-10-14] MEDS: VANCOMYCIN INJ 1,000 MG in SODIUM CHLORIDE 0.9% 250 ML IV SCH ×2 (04:57→17:42)
[2019-10-14 05:21] LABS: Calcium 7.9 MG/DL (8.5-10.1); Osmolality,Calculated 272.2 MOS/KG (273-304)
[2019-10-14 05:22] LABS: Calcium 7.2 MG/DL (8.5-10.1); Osmolality,Calculated 274.1 MOS/KG (273-304)
[2019-10-14] MEDS: INSULIN REGULAR 100 UNIT/ML SUBCUT SCH ×3 (05:23→17:43)
[2019-10-14 05:44] LABS: Lymphocytes 1 % (20-55); Nucleated Red Blood Cells 1 (0-5); Segmented Neutrophils 93 % (50-85); Total Cells Counted 100
[2019-10-14 05:45] LABS: Hypochromasia 2+; Platelet Estimate Adequate
[2019-10-14] MEDS: METOPROLOL TARTRATE 5 MG/5 ML VIAL IV SCH ×3 (06:15→17:11)
[2019-10-14] MEDS: metroNIDAZOLE INJ 500 MG in PREMIX 1 EACH IV SCH ×3 (06:15→21:40)
[2019-10-14] MEDS ORDERED: MAGNESIUM SULF RIDER 2 GM in PREMIX 1 EACH IV ONE (07:49)
[2019-10-14] MEDS ORDERED: POTASSIUM CHLORIDE RIDER 20 MEQ in PREMIX 1 EACH IV PRN (07:49)
[2019-10-14] MEDS ORDERED: SODIUM CHLORIDE 0.9% 1,000 ML IV PRN (07:50)
[2019-10-14] MEDS: MEROPENEM 2,000 MG in SODIUM CHLORIDE 0.9% 100 ML IV SCH ×3 (08:29→18:01)
[2019-10-14] MEDS: amLODIPine 10 MG TABLET PO SCH (08:31)
[2019-10-14] MEDS: PANTOPRAZOLE 40 MG VIAL IV SCH (08:32)
[2019-10-14] MEDS ORDERED: POTASSIUM PHOSPHATE IV ONE (09:00)
[2019-10-14] MEDS ORDERED: POTASSIUM CHLORIDE IV ONE (09:00)
[2019-10-14] MEDS ORDERED: [UNRECOGNIZED DRUG - OTHER] IV ONE (09:00)
[2019-10-14] MEDS ORDERED: MAGNESIUM SULF IV ONE (09:00)
[2019-10-14] MEDS: methylPREDNISolone SOD SUC 40 MG/1 ML VIAL IV SCH ×3 (16:20→21:28)
[2019-10-14] MEDS: ENOXAPARIN 40 MG/0.4 ML SYRINGE SUBCUT SCH (16:37)
[2019-10-14] MEDS: AMINO ACIDS IV SCH (16:51)
[2019-10-14] MEDS: DEXTROSE 70% IV SCH (16:51)
[2019-10-14] MEDS: MULTIVITAMIN IV SCH (16:51)
[2019-10-14] MEDS: QUEtiapine 25 MG TABLET PO SCH (21:27)
[2019-10-15] MEDS: INSULIN REGULAR 100 UNIT/ML SUBCUT SCH ×4 (00:18→17:34)
[2019-10-15] MEDS: METOPROLOL TARTRATE 5 MG/5 ML VIAL IV SCH ×2 (01:39→06:17)
[2019-10-15] MEDS: MEROPENEM 2,000 MG in SODIUM CHLORIDE 0.9% 100 ML IV SCH ×3 (01:40→17:15)
[2019-10-15] MEDS: dilTIAZem Drip 125 MG/125 ML PREMIX IV SCH (02:27)
[2019-10-15] MEDS: methylPREDNISolone SOD SUC 40 MG/1 ML VIAL IV SCH ×3 (03:34→21:01)
[2019-10-15] MEDS: HYDROmorphone 2 MG/1 ML VIAL IV PRN ×4 (03:35→21:03)
[2019-10-15] MEDS: metroNIDAZOLE INJ 500 MG in PREMIX 1 EACH IV SCH (06:17)
[2019-10-15 07:51] LABS: Osmolality,Calculated 275.1 MOS/KG (273-304)
[2019-10-15 08:21] LABS: Basophils % 0.1 % (0.0-0.8); Hematocrit 29.8 VOL% (35.7-47.0); Hemoglobin 9.6 GM/DL (12.0-16.0); Immature Granulocytes % 1.8 %; Immature Granulocytes Absolute 0.31 #; Lymphocytes # 0.4 10*3/uL (1.4-4.0); Lymphocytes % 2.3 % (21.3-54.2); Mean Corpuscular HGB Conc 32.2 GM/DL (32-36); Mean Corpuscular Volume 72.9 FL (87-102); Mean Platelet Volume 8.6 FL (9.6-12.0); Monocytes % 2.5 % (1.7-12.7); Neutrophils % 93.3 % (38.7-73.9); Platelet Count 288 T/CUMM (130-400); Red Blood Count 4.09 MC/CUMM (3.8-5.5); Red Cell Distribution Width 19.9 % (9.3-17.3); White Blood Count 17.5 T/CUMM (4-12)
[2019-10-15 08:42] LABS: Hypochromasia 1+; Lymphocytes 1 % (20-55); Microcytosis Slight; Platelet Estimate Adequate; Segmented Neutrophils 97 % (50-85); Total Cells Counted 100
[2019-10-15] MEDS: AMINO ACIDS IV SCH (09:30)
[2019-10-15] MEDS: DEXTROSE 70% IV SCH (09:30)
[2019-10-15] MEDS: MULTIVITAMIN IV SCH (09:30)
[2019-10-15] MEDS: METOPROLOL TARTRATE 100 MG TABLET PO SCH (09:46)
[2019-10-15] MEDS ORDERED: VANCOMYCIN INJ 1,000 MG in SODIUM CHLORIDE 0.9% 250 ML IV SCH (12:00)
[2019-10-15] MEDS ORDERED: POTASSIUM PHOSPHATE 30 MMOL in SODIUM CHLORIDE 0.9% 250 ML IV ONE (13:41)
[2019-10-15] MEDS: ENOXAPARIN 40 MG/0.4 ML SYRINGE SUBCUT SCH (15:07)
[2019-10-15] MEDS: QUEtiapine 25 MG TABLET PO SCH (21:01)
[2019-10-16] MEDS: INSULIN REGULAR 100 UNIT/ML SUBCUT SCH ×5 (00:42→23:40)
[2019-10-16] MEDS: HYDROmorphone 2 MG/1 ML VIAL IV PRN ×2 (02:35→13:17)
[2019-10-16] MEDS: MEROPENEM 2,000 MG in SODIUM CHLORIDE 0.9% 100 ML IV SCH ×3 (02:38→16:35)
[2019-10-16 06:58] LABS: Basophils % 0.1 % (0.0-0.8); Hematocrit 31.6 VOL% (35.7-47.0); Hemoglobin 9.3 GM/DL (12.0-16.0); Immature Granulocytes % 1.1 %; Immature Granulocytes Absolute 0.21 #; Lymphocytes # 0.7 10*3/uL (1.4-4.0); Lymphocytes % 3.8 % (21.3-54.2); Mean Corpuscular HGB Conc 29.4 GM/DL (32-36); Mean Corpuscular Volume 78.4 FL (87-102); Mean Platelet Volume 9.3 FL (9.6-12.0); Monocytes % 4.7 % (1.7-12.7); NRBC # 0.06 10*3/uL; Neutrophils % 90.3 % (38.7-73.9); Platelet Count 346 T/CUMM (130-400); Red Blood Count 4.03 MC/CUMM (3.8-5.5); Red Cell Distribution Width 21.2 % (9.3-17.3)
[2019-10-16 07:33] LABS: Calcium 7.9 MG/DL (8.5-10.1)
[2019-10-16] MEDS: METOPROLOL TARTRATE 100 MG TABLET PO SCH (09:06)
[2019-10-16] MEDS: methylPREDNISolone SOD SUC 40 MG/1 ML VIAL IV SCH ×2 (09:10→21:36)
[2019-10-16 11:23] LABS: Basophils % 0.1 % (0.0-0.8); Hematocrit 28.7 VOL% (35.7-47.0); Hemoglobin 9.1 GM/DL (12.0-16.0); Immature Granulocytes % 0.7 %; Immature Granulocytes Absolute 0.14 #; Lymphocytes # 0.6 10*3/uL (1.4-4.0); Mean Corpuscular HGB Conc 31.7 GM/DL (32-36); Mean Corpuscular Volume 74.4 FL (87-102); Mean Platelet Volume 9.5 FL (9.6-12.0); Monocytes % 5.9 % (1.7-12.7); NRBC # 0.05 10*3/uL; Neutrophils % 90.3 % (38.7-73.9); Platelet Count 382 T/CUMM (130-400); Red Blood Count 3.86 MC/CUMM (3.8-5.5); Red Cell Distribution Width 20.5 % (9.3-17.3); White Blood Count 18.9 T/CUMM (4-12)
[2019-10-16 12:48] LABS: Burr Cells Slight; Hypochromasia 4+; Platelet Estimate Normal; Schistocytes Slight
[2019-10-16 13:15] LABS: Lymphocytes 8 % (20-55); Segmented Neutrophils 90 % (50-85); Total Cells Counted 100
[2019-10-16 13:16] LABS: Hypochromasia 1+; Macrocytosis 1+; Platelet Estimate Adequate; Target Cells Few
[2019-10-16] MEDS: ENOXAPARIN 40 MG/0.4 ML SYRINGE SUBCUT SCH (16:12)
[2019-10-16] MEDS: QUEtiapine 25 MG TABLET PO SCH (21:36)
[2019-10-17] MEDS: MEROPENEM 2,000 MG in SODIUM CHLORIDE 0.9% 100 ML IV SCH ×3 (02:29→16:49)
[2019-10-17] MEDS: HYDROmorphone 2 MG/1 ML VIAL IV PRN (03:49)
[2019-10-17] MEDS: INSULIN REGULAR 100 UNIT/ML SUBCUT SCH ×2 (05:27→12:57)
[2019-10-17 08:31] LABS: Basophils % 0.1 % (0.0-0.8); Hemoglobin 9.3 GM/DL (12.0-16.0); Immature Granulocytes % 0.6 %; Immature Granulocytes Absolute 0.08 #; Lymphocytes # 0.5 10*3/uL (1.4-4.0); Lymphocytes % 3.6 % (21.3-54.2); Mean Corpuscular Volume 75.8 FL (87-102); Monocytes % 5.9 % (1.7-12.7); NRBC # 0.02 10*3/uL; Neutrophils % 89.8 % (38.7-73.9); Platelet Count 439 T/CUMM (130-400); Red Blood Count 3.96 MC/CUMM (3.8-5.5); White Blood Count 13.7 T/CUMM (4-12)
[2019-10-17 08:59] LABS: Albumin 1.7 G/DL (3.4-5.0); Bilirubin,Total 0.8 MG/DL (0.2-1.0); Calcium 8.2 MG/DL (8.5-10.1); Osmolality,Calculated 271.2 MOS/KG (273-304); Total Protein 5.7 G/DL (6.4-8.3)
[2019-10-17] MEDS: methylPREDNISolone SOD SUC 40 MG/1 ML VIAL IV SCH ×2 (09:50→20:58)
[2019-10-17] MEDS: METOPROLOL TARTRATE 100 MG TABLET PO SCH (09:50)
[2019-10-17 13:24] LABS: Hypochromasia 3+; Lymphocytes 5 % (20-55); Microcytosis 3+; Platelet Estimate Increased; Polychromasia Slight; Segmented Neutrophils 92 % (50-85); Total Cells Counted 100
[2019-10-17] MEDS: ENOXAPARIN 40 MG/0.4 ML SYRINGE SUBCUT SCH (16:49)
[2019-10-17] MEDS: QUEtiapine 25 MG TABLET PO SCH (20:58)
[2019-10-18] MEDS: MEROPENEM 2,000 MG in SODIUM CHLORIDE 0.9% 100 ML IV SCH ×3 (00:30→16:50)
[2019-10-18] MEDS: HYDROmorphone 2 MG/1 ML VIAL IV PRN ×4 (05:27→22:30)
[2019-10-18 06:03] LABS: Basophils % 0.1 % (0.0-0.8); Hematocrit 30.6 VOL% (35.7-47.0); Hemoglobin 9.6 GM/DL (12.0-16.0); Immature Granulocytes % 0.6 %; Immature Granulocytes Absolute 0.07 #; Lymphocytes # 0.6 10*3/uL (1.4-4.0); Lymphocytes % 5.1 % (21.3-54.2); Mean Corpuscular HGB Conc 31.4 GM/DL (32-36); Mean Corpuscular Volume 73.7 FL (87-102); Mean Platelet Volume 9.6 FL (9.6-12.0); Monocytes % 8.6 % (1.7-12.7); NRBC # 0.02 10*3/uL; Neutrophils % 85.6 % (38.7-73.9); Platelet Count 489 T/CUMM (130-400); Red Blood Count 4.15 MC/CUMM (3.8-5.5); Red Cell Distribution Width 20.7 % (9.3-17.3); White Blood Count 12.6 T/CUMM (4-12)
[2019-10-18 06:15] LABS: Albumin 1.8 G/DL (3.4-5.0); Bilirubin,Total 0.4 MG/DL (0.2-1.0); Calcium 8.2 MG/DL (8.5-10.1); Osmolality,Calculated 273.1 MOS/KG (273-304); Total Protein 5.7 G/DL (6.4-8.3)
[2019-10-18 06:24] LABS: Prealbumin 24.1 MG/DL (20-40)
[2019-10-18] MEDS: METOPROLOL TARTRATE 100 MG TABLET PO SCH ×2 (09:01→20:27)
[2019-10-18] MEDS: methylPREDNISolone SOD SUC 40 MG/1 ML VIAL IV SCH ×2 (09:01→20:26)
[2019-10-18] MEDS: FLUCONAZOLE INJ 200 MG in PREMIX 1 EACH IV SCH (09:11)
[2019-10-18] MEDS: ENOXAPARIN 40 MG/0.4 ML SYRINGE SUBCUT SCH (16:39)
[2019-10-18] MEDS: POTASSIUM CHLORIDE RIDER 10 MEQ in PREMIX 1 EACH IV PRN ×2 (16:51→18:15)
[2019-10-18] MEDS: QUEtiapine 25 MG TABLET PO SCH (20:26)
[2019-10-19] MEDS: HYDROmorphone 2 MG/1 ML VIAL IV PRN ×5 (01:31→23:55)
[2019-10-19] MEDS: MEROPENEM 2,000 MG in SODIUM CHLORIDE 0.9% 100 ML IV SCH ×3 (01:31→16:57)
[2019-10-19 08:04] LABS: Basophils % 0.1 % (0.0-0.8); Hematocrit 30.8 VOL% (35.7-47.0); Hemoglobin 9.5 GM/DL (12.0-16.0); Immature Granulocytes % 0.7 %; Immature Granulocytes Absolute 0.09 #; Lymphocytes # 0.9 10*3/uL (1.4-4.0); Lymphocytes % 7.1 % (21.3-54.2); Mean Corpuscular HGB Conc 30.8 GM/DL (32-36); Mean Corpuscular Volume 75.9 FL (87-102); Mean Platelet Volume 10.4 FL (9.6-12.0); Monocytes % 10.2 % (1.7-12.7); Neutrophils % 81.9 % (38.7-73.9); Platelet Count 545 T/CUMM (130-400); Red Blood Count 4.06 MC/CUMM (3.8-5.5); Red Cell Distribution Width 21.1 % (9.3-17.3); White Blood Count 12.1 T/CUMM (4-12)
[2019-10-19 08:19] LABS: Calcium 8.6 MG/DL (8.5-10.1); Osmolality,Calculated 273.1 MOS/KG (273-304)
[2019-10-19] MEDS: methylPREDNISolone SOD SUC 40 MG/1 ML VIAL IV SCH ×2 (08:23→21:39)
[2019-10-19] MEDS: FLUCONAZOLE INJ 200 MG in PREMIX 1 EACH IV SCH (08:23)
[2019-10-19] MEDS: METOPROLOL TARTRATE 100 MG TABLET PO SCH ×2 (08:24→21:39)
[2019-10-19] MEDS: ENOXAPARIN 40 MG/0.4 ML SYRINGE SUBCUT SCH (16:50)
[2019-10-19] MEDS: QUEtiapine 25 MG TABLET PO SCH (21:39)
[2019-10-20] MEDS: HYDROmorphone 2 MG/1 ML VIAL IV PRN ×3 (05:55→15:20)
[2019-10-20] MEDS: METOPROLOL TARTRATE 100 MG TABLET PO SCH ×2 (08:18→21:17)
[2019-10-20] MEDS: methylPREDNISolone SOD SUC 40 MG/1 ML VIAL IV SCH (08:18)
[2019-10-20] MEDS: FLUCONAZOLE INJ 200 MG in PREMIX 1 EACH IV SCH (08:18)
[2019-10-20 09:23] LABS: Basophils % 0.1 % (0.0-0.8); Eosinophils % 0.2 % (0.00-10.9); Hematocrit 31.4 VOL% (35.7-47.0); Hemoglobin 10.1 GM/DL (12.0-16.0); Immature Granulocytes Absolute 0.15 #; Lymphocytes # 1.2 10*3/uL (1.4-4.0); Mean Corpuscular HGB Conc 32.2 GM/DL (32-36); Mean Corpuscular Volume 74.2 FL (87-102); Mean Platelet Volume 8.9 FL (9.6-12.0); Monocytes % 10.3 % (1.7-12.7); Neutrophils % 80.4 % (38.7-73.9); Platelet Count 546 T/CUMM (130-400); Red Blood Count 4.23 MC/CUMM (3.8-5.5); Red Cell Distribution Width 20.7 % (9.3-17.3); White Blood Count 15.1 T/CUMM (4-12)
[2019-10-20 09:51] LABS: Calcium 8.5 MG/DL (8.5-10.1)
[2019-10-20] MEDS: DEXAMETHASONE 0.5 MG TABLET PO SCH (14:22)
[2019-10-20] MEDS: ENOXAPARIN 40 MG/0.4 ML SYRINGE SUBCUT SCH (14:22)
[2019-10-20] MEDS: MEROPENEM 2,000 MG in SODIUM CHLORIDE 0.9% 100 ML IV SCH ×2 (14:22→21:24)
[2019-10-20] MEDS: QUEtiapine 25 MG TABLET PO SCH (21:17)
[2019-10-21] MEDS: MEROPENEM 2,000 MG in SODIUM CHLORIDE 0.9% 100 ML IV SCH (05:53)
[2019-10-21 06:23] LABS: Basophils % 0.2 % (0.0-0.8); Hematocrit 29.8 VOL% (35.7-47.0); Hemoglobin 9.4 GM/DL (12.0-16.0); Immature Granulocytes Absolute 0.12 #; Lymphocytes # 0.8 10*3/uL (1.4-4.0); Lymphocytes % 6.6 % (21.3-54.2); Mean Corpuscular HGB Conc 31.5 GM/DL (32-36); Mean Corpuscular Volume 74.5 FL (87-102); Mean Platelet Volume 9.7 FL (9.6-12.0); Monocytes % 10.4 % (1.7-12.7); Neutrophils % 81.8 % (38.7-73.9); Platelet Count 627 T/CUMM (130-400); Red Cell Distribution Width 20.6 % (9.3-17.3); White Blood Count 11.9 T/CUMM (4-12)
[2019-10-21 06:35] LABS: Calcium 8.6 MG/DL (8.5-10.1)
[2019-10-21] MEDS: DEXAMETHASONE 0.5 MG TABLET PO SCH (08:52)
[2019-10-21] MEDS: METOPROLOL TARTRATE 100 MG TABLET PO SCH ×2 (08:52→21:00)
[2019-10-21] MEDS: FLUCONAZOLE INJ 200 MG in PREMIX 1 EACH IV SCH (08:52)
[2019-10-21] MEDS: HYDROmorphone 2 MG/1 ML VIAL IV PRN ×3 (09:10→22:41)
[2019-10-21] MEDS: ENOXAPARIN 40 MG/0.4 ML SYRINGE SUBCUT SCH (17:57)
[2019-10-21] MEDS: QUEtiapine 25 MG TABLET PO SCH (21:00)
[2019-10-22 06:33] LABS: Basophils % 0.1 % (0.0-0.8); Eosinophils % 0.1 % (0.00-10.9); Hematocrit 30.5 VOL% (35.7-47.0); Hemoglobin 9.3 GM/DL (12.0-16.0); Immature Granulocytes % 0.9 %; Lymphocytes # 0.9 10*3/uL (1.4-4.0); Lymphocytes % 8.1 % (21.3-54.2); Mean Corpuscular HGB Conc 30.5 GM/DL (32-36); Mean Corpuscular Volume 76.6 FL (87-102); Mean Platelet Volume 10.5 FL (9.6-12.0); Monocytes % 11.1 % (1.7-12.7); Neutrophils % 79.7 % (38.7-73.9); Platelet Count 646 T/CUMM (130-400); Red Blood Count 3.98 MC/CUMM (3.8-5.5); Red Cell Distribution Width 20.6 % (9.3-17.3); White Blood Count 11.4 T/CUMM (4-12)
[2019-10-22 06:47] LABS: Calcium 8.5 MG/DL (8.5-10.1); Osmolality,Calculated 279.7 MOS/KG (273-304)
[2019-10-22] MEDS: DEXAMETHASONE 0.5 MG TABLET PO SCH (09:32)
[2019-10-22] MEDS: METOPROLOL TARTRATE 100 MG TABLET PO SCH ×3 (09:33→21:40)
[2019-10-22] MEDS: ENOXAPARIN 40 MG/0.4 ML SYRINGE SUBCUT SCH (21:27)
[2019-10-22] MEDS: QUEtiapine 25 MG TABLET PO SCH (21:29)
[2019-10-23 07:50] LABS: Basophils % 0.1 % (0.0-0.8); Eosinophils % 0.2 % (0.00-10.9); Hematocrit 30.1 VOL% (35.7-47.0); Hemoglobin 9.2 GM/DL (12.0-16.0); Immature Granulocytes % 0.7 %; Immature Granulocytes Absolute 0.09 #; Lymphocytes # 1.1 10*3/uL (1.4-4.0); Lymphocytes % 8.6 % (21.3-54.2); Mean Corpuscular HGB Conc 30.6 GM/DL (32-36); Monocytes % 11.6 % (1.7-12.7); NRBC # 0.03 10*3/uL; Neutrophils % 78.8 % (38.7-73.9); Platelet Count 604 T/CUMM (130-400); Red Blood Count 3.96 MC/CUMM (3.8-5.5); Red Cell Distribution Width 20.3 % (9.3-17.3)
[2019-10-23] MEDS: METOPROLOL TARTRATE 100 MG TABLET PO SCH ×2 (09:26→20:59)
[2019-10-23] MEDS: DEXAMETHASONE 0.5 MG TABLET PO SCH (09:26)
[2019-10-23 09:53] LABS: Calcium 8.4 MG/DL (8.5-10.1); Osmolality,Calculated 278.5 MOS/KG (273-304)
[2019-10-23] MEDS ORDERED: SODIUM CHLORIDE 0.9% 1,000 ML IV SCH (10:00)
[2019-10-23] MEDS ORDERED: FUROSEMIDE 20 MG/2 ML VIAL IV ONE (13:51)
[2019-10-23] MEDS: MAGNESIUM OXIDE 400 MG TABLET PO SCH ×2 (15:08→21:00)
[2019-10-23] MEDS: HYDROmorphone 2 MG/1 ML VIAL IV PRN (20:58)
[2019-10-23] MEDS: ENOXAPARIN 40 MG/0.4 ML SYRINGE SUBCUT SCH (20:59)
[2019-10-23] MEDS: QUEtiapine 25 MG TABLET PO SCH (21:00)
[2019-10-24 04:55] LABS: Basophils % 0.1 % (0.0-0.8); Eosinophils % 0.2 % (0.00-10.9); Hematocrit 29.9 VOL% (35.7-47.0); Hemoglobin 9.3 GM/DL (12.0-16.0); Immature Granulocytes % 0.9 %; Immature Granulocytes Absolute 0.11 #; Lymphocytes # 1.1 10*3/uL (1.4-4.0); Lymphocytes % 9.4 % (21.3-54.2); Mean Corpuscular HGB Conc 31.1 GM/DL (32-36); Mean Corpuscular Volume 75.1 FL (87-102); Mean Platelet Volume 9.3 FL (9.6-12.0); Monocytes % 9.2 % (1.7-12.7); NRBC # 0.03 10*3/uL; Neutrophils % 80.2 % (38.7-73.9); Platelet Count 613 T/CUMM (130-400); Red Blood Count 3.98 MC/CUMM (3.8-5.5); Red Cell Distribution Width 19.8 % (9.3-17.3); White Blood Count 11.9 T/CUMM (4-12)
[2019-10-24 05:43] LABS: Calcium 8.1 MG/DL (8.5-10.1); Osmolality,Calculated 280.4 MOS/KG (273-304)
[2019-10-24] MEDS ORDERED: FUROSEMIDE 20 MG/2 ML VIAL IV ONE (09:14)
[2019-10-24] MEDS: DEXAMETHASONE 0.5 MG TABLET PO SCH (09:59)
[2019-10-24] MEDS: METOPROLOL TARTRATE 100 MG TABLET PO SCH ×2 (09:59→21:04)
[2019-10-24] MEDS: MAGNESIUM OXIDE 400 MG TABLET PO SCH ×2 (09:59→21:04)
[2019-10-24] MEDS: SPIRONOLACTONE 25 MG TABLET PO SCH (09:59)
[2019-10-24] MEDS ORDERED: DIGOXIN 0.5 MG/2 ML AMP IV ONE (17:57)
[2019-10-24] MEDS: ENOXAPARIN 40 MG/0.4 ML SYRINGE SUBCUT SCH (21:04)
[2019-10-24] MEDS: QUEtiapine 25 MG TABLET PO SCH (21:04)
[2019-10-24] MEDS: HYDROmorphone 2 MG/1 ML VIAL IV PRN (21:07)
[2019-10-25 06:58] LABS: Calcium 8.3 MG/DL (8.5-10.1); Osmolality,Calculated 279.4 MOS/KG (273-304)
[2019-10-25] MEDS: MAGNESIUM OXIDE 400 MG TABLET PO SCH (09:30)
[2019-10-25] MEDS: HYDROmorphone 2 MG/1 ML VIAL IV PRN (09:30)
[2019-10-25] MEDS: SPIRONOLACTONE 25 MG TABLET PO SCH (09:30)
[2019-10-25] MEDS: DEXAMETHASONE 0.5 MG TABLET PO SCH (09:31)
[2019-10-25] MEDS: METOPROLOL TARTRATE 100 MG TABLET PO SCH (09:31)
[2019-10-25 12:03] VITALS: BP 95/68
[2019-10-25] MEDS ORDERED: DIGOXIN 0.125 MG TABLET PO SCH (13:00)
== END 2019-10-25 11:50 | DRG 220 ==
LOC: EDUNIT# → EDBD → N.ED 12:20 → N.EDINP 14:27 → SUATTDRO 14:27 → N.EDINP 15:19 → N.3E 18:39 → N.ICU 10-08 10:34 → N.TELEN 10-09 13:01 → N.ICU 10-12 14:00 → N.TELEN 10-14 18:56 → N.3E 10-21 18:15
PROVIDERS: ADMIT Surgery; ATTEND Surgery

== ENCOUNTER 2019-12-23 18:24 | Inpatient (IN) ==
[2019-12-23] MEDS ORDERED: ALUM/MAG/SIMETH/LIDO VISC 1:1 30 ML BOTTLE PO STA (19:20)
[2019-12-23] MEDS ORDERED: SODIUM CHLORIDE 0.9% 1,000 ML IV STA (19:20)
[2019-12-23] MEDS ORDERED: PANTOPRAZOLE 40 MG VIAL IV STA (19:20)
[2019-12-23] MEDS ORDERED: ONDANSETRON 4 MG/2 ML VIAL IV STA (19:20)
[2019-12-23 20:43] LABS: Bacteria,Urine Occasional /HPF (Few); Bilirubin,Urine Negative (Negative); Blood, Urine Negative (Negative); Glucose,Urine (UA) Negative (Negative); Hyaline Casts,Urine 3 /LPF (0-3); Ketones,Urine Negative (Negative); Mucus,Urine Occasional /LPF (Occasional); Nitrite,Urine Negative (Negative); Protein,Urine Negative; RBC,Urine 1 /HPF (0-4); Urine Appearance CLEAR (Clear); Urine Color Yellow (Yellow); Urine Specific Gravity 1.015 (1.001-1.035); WBC,Urine <1 /HPF (0-6)
[2019-12-23 21:09] LABS: Basophils % 0.3 % (0.0-0.8); Eosinophils % 0.1 % (0.00-10.9); Hematocrit 37.9 VOL% (35.7-47.0); Hemoglobin 11.5 GM/DL (12.0-16.0); Immature Granulocytes % 1.1 %; Immature Granulocytes Absolute 0.12 #; Lymphocytes % 18.4 % (21.3-54.2); Mean Corpuscular HGB Conc 30.3 GM/DL (32-36); Mean Corpuscular Volume 72.2 FL (87-102); Mean Platelet Volume 9.4 FL (9.6-12.0); Monocytes % 11.6 % (1.7-12.7); Neutrophils % 68.5 % (38.7-73.9); Platelet Count 220 T/CUMM (130-400); Red Blood Count 5.25 MC/CUMM (3.8-5.5); Red Cell Distribution Width 20.1 % (9.3-17.3); White Blood Count 10.7 T/CUMM (4-12)
[2019-12-23 21:37] LABS: Alanine Aminotransferase 18 U/L (13-56); Albumin 2.2 G/DL (3.4-5.0); Alkaline Phosphatase 86 U/L (45-117); Amylase 45 U/L (25-115); Aspartate Amino Transferase 12 U/L (0-37); Blood Urea Nitrogen 15 MG/DL (7-18); Calcium 7.8 MG/DL (8.5-10.1); Estimated Glom Filtration Rate 62 ML/MIN; Glucose 82 MG/DL (74-106); Osmolality,Calculated 267.2 MOS/KG (273-304); Total Protein 6.1 G/DL (6.4-8.3)
[2019-12-23] MEDS ORDERED: MAGNESIUM SULF RIDER 2 GM in PREMIX 1 EACH IV STA (22:31)
[2019-12-23] MEDS ORDERED: PIPERACILLIN/TAZOBACTAM 3,375 MG in SODIUM CHLORIDE 0.9% 100 ML IV STA (22:51)
[2019-12-24] MEDS ORDERED: ONDANSETRON 4 MG/2 ML VIAL IV PRN (02:24)
[2019-12-24] MEDS ORDERED: DOCUSATE SODIUM 100 MG CAPSULE PO PRN (02:24)
[2019-12-24] MEDS: ENOXAPARIN 40 MG/0.4 ML SYRINGE SUBCUT SCH (03:30)
[2019-12-24 03:43] LABS: Basophils % 0.2 % (0.0-0.8); Eosinophils % 0.1 % (0.00-10.9); Hematocrit 35.6 VOL% (35.7-47.0); Hemoglobin 10.7 GM/DL (12.0-16.0); Immature Granulocytes Absolute 0.09 #; Lymphocytes # 1.6 10*3/uL (1.4-4.0); Lymphocytes % 17.6 % (21.3-54.2); Mean Corpuscular HGB Conc 30.1 GM/DL (32-36); Mean Corpuscular Volume 72.4 FL (87-102); Mean Platelet Volume 9.8 FL (9.6-12.0); Monocytes % 10.6 % (1.7-12.7); Neutrophils % 70.5 % (38.7-73.9); Platelet Count 120 T/CUMM (130-400); Red Blood Count 4.92 MC/CUMM (3.8-5.5); Red Cell Distribution Width 20.4 % (9.3-17.3)
[2019-12-24] MEDS ORDERED: MAGNESIUM SULF RIDER 2 GM in PREMIX 1 EACH IV PRN (04:15)
[2019-12-24 04:25] LABS: Band Neutrophils 1 % (0-10); Lymphocytes 16 % (20-55); Segmented Neutrophils 73 % (50-85); Total Cells Counted 100
[2019-12-24 04:27] LABS: Anisocytosis 1+; Ovalocytes 1+; Platelet Estimate Adequate
[2019-12-24] MEDS: SODIUM CHLORIDE 0.9% 1,000 ML IV SCH ×2 (05:48→18:58)
[2019-12-24 06:12] LABS: Calcium 7.3 MG/DL (8.5-10.1); Osmolality,Calculated 272.7 MOS/KG (273-304)
[2019-12-24] MEDS ORDERED: PIPERACILLIN/TAZOBACTAM 3,375 MG VIAL IV ONE (09:36)
[2019-12-24] MEDS: amLODIPine 10 MG TABLET PO SCH (10:00)
[2019-12-24] MEDS: METOPROLOL TARTRATE 50 MG TABLET PO SCH ×2 (10:00→21:24)
[2019-12-24] MEDS: PIPERACILLIN/TAZOBACTAM 3,375 MG in SODIUM CHLORIDE 0.9% 100 ML IV SCH ×2 (10:00→16:45)
[2019-12-24] MEDS: SPIRONOLACTONE 25 MG TABLET PO SCH (10:20)
[2019-12-24] MEDS: DIGOXIN 0.125 MG TABLET PO SCH (12:50)
[2019-12-25] MEDS: ENOXAPARIN 40 MG/0.4 ML SYRINGE SUBCUT SCH (03:52)
[2019-12-25] MEDS: PIPERACILLIN/TAZOBACTAM 3,375 MG in SODIUM CHLORIDE 0.9% 100 ML IV SCH ×3 (04:52→17:06)
[2019-12-25 07:03] LABS: Calcium 7.9 MG/DL (8.5-10.1); Osmolality,Calculated 264.2 MOS/KG (273-304)
[2019-12-25 07:07] LABS: Basophils % 0.2 % (0.0-0.8); Eosinophils % 0.1 % (0.00-10.9); Hematocrit 33.4 VOL% (35.7-47.0); Hemoglobin 10.2 GM/DL (12.0-16.0); Immature Granulocytes % 0.8 %; Immature Granulocytes Absolute 0.07 #; Lymphocytes # 1.3 10*3/uL (1.4-4.0); Lymphocytes % 14.7 % (21.3-54.2); Mean Corpuscular HGB Conc 30.5 GM/DL (32-36); Mean Corpuscular Volume 72.1 FL (87-102); Mean Platelet Volume 10.3 FL (9.6-12.0); Monocytes % 11.5 % (1.7-12.7); Neutrophils % 72.7 % (38.7-73.9); Platelet Count 233 T/CUMM (130-400); Red Blood Count 4.63 MC/CUMM (3.8-5.5); Red Cell Distribution Width 19.8 % (9.3-17.3); White Blood Count 8.5 T/CUMM (4-12)
[2019-12-25 07:52] LABS: Band Neutrophils 6 % (0-10); Eosinophils 1 % (0-10); Lymphocytes 15 % (20-55); Nucleated Red Blood Cells 1 (0-5); Platelet Estimate Normal; Segmented Neutrophils 66 % (50-85); Total Cells Counted 100
[2019-12-25 07:53] LABS: Burr Cells Few; Poikilocytosis 1+
[2019-12-25 07:54] LABS: Anisocytosis 2+; Polychromasia Slight
[2019-12-25] MEDS: METOPROLOL TARTRATE 50 MG TABLET PO SCH ×2 (09:32→21:08)
[2019-12-25] MEDS: amLODIPine 10 MG TABLET PO SCH (09:32)
[2019-12-25] MEDS: SPIRONOLACTONE 25 MG TABLET PO SCH (09:33)
[2019-12-25] MEDS: DIGOXIN 0.125 MG TABLET PO SCH (14:55)
[2019-12-25] MEDS: SODIUM CHLORIDE 0.9% 1,000 ML IV SCH ×2 (17:06→21:07)
[2019-12-26] MEDS: PIPERACILLIN/TAZOBACTAM 3,375 MG in SODIUM CHLORIDE 0.9% 100 ML IV SCH ×3 (00:34→16:48)
[2019-12-26] MEDS: ENOXAPARIN 40 MG/0.4 ML SYRINGE SUBCUT SCH (02:01)
[2019-12-26] MEDS: HYDROmorphone 2 MG/1 ML VIAL IV PRN (02:01)
[2019-12-26 04:46] LABS: Basophils % 0.2 % (0.0-0.8); Eosinophils % 0.1 % (0.00-10.9); Hematocrit 30.6 VOL% (35.7-47.0); Hemoglobin 9.3 GM/DL (12.0-16.0); Immature Granulocytes % 0.5 %; Immature Granulocytes Absolute 0.05 #; Lymphocytes # 1.6 10*3/uL (1.4-4.0); Lymphocytes % 14.4 % (21.3-54.2); Mean Corpuscular HGB Conc 30.4 GM/DL (32-36); Mean Platelet Volume 9.8 FL (9.6-12.0); Monocytes % 9.8 % (1.7-12.7); Platelet Count 258 T/CUMM (130-400); Red Blood Count 4.31 MC/CUMM (3.8-5.5); Red Cell Distribution Width 19.5 % (9.3-17.3); White Blood Count 10.8 T/CUMM (4-12)
[2019-12-26 05:25] LABS: Calcium 7.6 MG/DL (8.5-10.1)
[2019-12-26] MEDS: MAGNESIUM SULF RIDER 4 GM in PREMIX 1 EACH IV PRN ×2 (08:50→11:02)
[2019-12-26] MEDS: SPIRONOLACTONE 25 MG TABLET PO SCH (08:51)
[2019-12-26] MEDS: amLODIPine 10 MG TABLET PO SCH (11:17)
[2019-12-26] MEDS: METOPROLOL TARTRATE 50 MG TABLET PO SCH ×2 (11:17→20:31)
[2019-12-26] MEDS: DIGOXIN 0.125 MG TABLET PO SCH (13:14)
[2019-12-26] MEDS: SODIUM CHLORIDE 0.9% 1,000 ML IV SCH (14:02)
[2019-12-27] MEDS: SODIUM CHLORIDE 0.9% 1,000 ML IV SCH ×2 (00:47→06:26)
[2019-12-27] MEDS: PIPERACILLIN/TAZOBACTAM 3,375 MG in SODIUM CHLORIDE 0.9% 100 ML IV SCH ×3 (01:10→18:22)
[2019-12-27] MEDS: ENOXAPARIN 40 MG/0.4 ML SYRINGE SUBCUT SCH (04:30)
[2019-12-27 05:36] LABS: Basophils % 0.2 % (0.0-0.8); Eosinophils % 0.1 % (0.00-10.9); Hematocrit 30.6 VOL% (35.7-47.0); Hemoglobin 9.2 GM/DL (12.0-16.0); Immature Granulocytes % 0.7 %; Immature Granulocytes Absolute 0.08 #; Lymphocytes # 1.8 10*3/uL (1.4-4.0); Lymphocytes % 15.8 % (21.3-54.2); Mean Corpuscular HGB Conc 30.1 GM/DL (32-36); Mean Corpuscular Volume 71.2 FL (87-102); Mean Platelet Volume 10.5 FL (9.6-12.0); Monocytes % 8.9 % (1.7-12.7); Neutrophils % 74.3 % (38.7-73.9); Platelet Count 267 T/CUMM (130-400); Red Cell Distribution Width 19.9 % (9.3-17.3); White Blood Count 11.7 T/CUMM (4-12)
[2019-12-27 06:04] LABS: Calcium 7.9 MG/DL (8.5-10.1); Osmolality,Calculated 270.7 MOS/KG (273-304)
[2019-12-27 06:21] LABS: Band Neutrophils 1 % (0-10); Burr Cells Slight; Hypochromasia 1+; Lymphocytes 20 % (20-55); Ovalocytes Slight; Platelet Estimate Adequate; Segmented Neutrophils 74 % (50-85); Total Cells Counted 100
[2019-12-27] MEDS: METOPROLOL TARTRATE 50 MG TABLET PO SCH (09:13)
[2019-12-27] MEDS: SPIRONOLACTONE 25 MG TABLET PO SCH (09:13)
[2019-12-27] MEDS: amLODIPine 10 MG TABLET PO SCH (09:14)
[2019-12-27] MEDS: DIGOXIN 0.125 MG TABLET PO SCH (13:10)
[2019-12-27] MEDS ORDERED: SODIUM CHLORIDE 0.9% 500 ML IV ONE (13:18)
[2019-12-27] MEDS: ENOXAPARIN 60 MG/0.6 ML SYRINGE SUBCUT SCH (18:21)
[2019-12-27] MEDS ORDERED: TUBERCULIN SKIN TEST 0.1 ML SYRINGE INTRADERM ONE (19:10)
[2019-12-28] MEDS: ACETAMINOPHEN 325 MG TABLET PO PRN (00:20)
[2019-12-28] MEDS: PIPERACILLIN/TAZOBACTAM 3,375 MG in SODIUM CHLORIDE 0.9% 100 ML IV SCH ×2 (00:22→09:37)
[2019-12-28] MEDS: SODIUM CHLORIDE 0.9% 1,000 ML IV SCH (03:35)
[2019-12-28 04:27] LABS: Basophils % 0.2 % (0.0-0.8); Eosinophils % 0.2 % (0.00-10.9); Hematocrit 29.1 VOL% (35.7-47.0); Hemoglobin 8.8 GM/DL (12.0-16.0); Immature Granulocytes % 0.8 %; Immature Granulocytes Absolute 0.08 #; Lymphocytes # 1.9 10*3/uL (1.4-4.0); Lymphocytes % 18.8 % (21.3-54.2); Mean Corpuscular HGB Conc 30.2 GM/DL (32-36); Mean Corpuscular Volume 70.8 FL (87-102); Mean Platelet Volume 10.1 FL (9.6-12.0); Monocytes % 9.1 % (1.7-12.7); Neutrophils % 70.9 % (38.7-73.9); Platelet Count 288 T/CUMM (130-400); Red Blood Count 4.11 MC/CUMM (3.8-5.5); Red Cell Distribution Width 20.1 % (9.3-17.3); White Blood Count 10.1 T/CUMM (4-12)
[2019-12-28] MEDS: ENOXAPARIN 60 MG/0.6 ML SYRINGE SUBCUT SCH ×2 (04:30→16:44)
[2019-12-28 05:04] LABS: Calcium 7.4 MG/DL (8.5-10.1); Osmolality,Calculated 267.8 MOS/KG (273-304)
[2019-12-28] MEDS ORDERED: POTASSIUM CHLORIDE 20 MEQ TABLET PO ONE (08:29)
[2019-12-28] MEDS: HYDROmorphone 2 MG/1 ML VIAL IV PRN (09:35)
[2019-12-28] MEDS: PANTOPRAZOLE 40 MG TABLET PO SCH ×2 (11:53→14:58)
[2019-12-28] MEDS: MAGNESIUM CHLORIDE 64 MG TABLET PO SCH ×3 (11:53→21:20)
[2019-12-28] MEDS: DIGOXIN 0.125 MG TABLET PO SCH (14:55)
[2019-12-29] MEDS: ACETAMINOPHEN 325 MG TABLET PO PRN ×2 (01:38→21:33)
[2019-12-29] MEDS: SODIUM CHLORIDE 0.9% 1,000 ML IV SCH (03:17)
[2019-12-29] MEDS: ENOXAPARIN 60 MG/0.6 ML SYRINGE SUBCUT SCH ×2 (03:37→16:49)
[2019-12-29 05:40] LABS: Basophils % 0.2 % (0.0-0.8); Hematocrit 27.8 VOL% (35.7-47.0); Hemoglobin 8.6 GM/DL (12.0-16.0); Immature Granulocytes % 0.9 %; Immature Granulocytes Absolute 0.08 #; Lymphocytes # 1.6 10*3/uL (1.4-4.0); Lymphocytes % 18.1 % (21.3-54.2); Mean Corpuscular HGB Conc 30.9 GM/DL (32-36); Mean Corpuscular Volume 69.5 FL (87-102); Mean Platelet Volume 9.5 FL (9.6-12.0); Monocytes % 8.5 % (1.7-12.7); Neutrophils % 72.3 % (38.7-73.9); Platelet Count 308 T/CUMM (130-400); Red Cell Distribution Width 20.2 % (9.3-17.3); White Blood Count 8.8 T/CUMM (4-12)
[2019-12-29 06:06] LABS: Calcium 7.4 MG/DL (8.5-10.1); Osmolality,Calculated 275.3 MOS/KG (273-304)
[2019-12-29] MEDS ORDERED: MAGNESIUM SULF RIDER 4 GM in PREMIX 1 EACH IV ONE (07:47)
[2019-12-29] MEDS: METOPROLOL TARTRATE 25 MG TABLET PO SCH (09:05)
[2019-12-29] MEDS: MAGNESIUM CHLORIDE 64 MG TABLET PO SCH ×2 (09:05→21:33)
[2019-12-29] MEDS: PANTOPRAZOLE 40 MG TABLET PO SCH (09:05)
[2019-12-29] MEDS: DIGOXIN 0.125 MG TABLET PO SCH (13:53)
[2019-12-29] MEDS ORDERED: DIAZEPAM 5 MG TABLET PO ONE (16:22)
[2019-12-29] MEDS ORDERED: diphenhydrAMINE CAP 25 MG CAPSULE PO ONE (16:22)
[2019-12-30 05:40] LABS: Basophils % 0.4 % (0.0-0.8); Eosinophils % 0.3 % (0.00-10.9); Hematocrit 27.3 VOL% (35.7-47.0); Hemoglobin 8.7 GM/DL (12.0-16.0); Immature Granulocytes % 0.7 %; Immature Granulocytes Absolute 0.05 #; Lymphocytes # 1.8 10*3/uL (1.4-4.0); Lymphocytes % 26.1 % (21.3-54.2); Mean Corpuscular HGB Conc 31.9 GM/DL (32-36); Mean Corpuscular Volume 67.2 FL (87-102); Mean Platelet Volume 9.5 FL (9.6-12.0); Monocytes % 8.3 % (1.7-12.7); Neutrophils % 64.2 % (38.7-73.9); Platelet Count 307 T/CUMM (130-400); Red Blood Count 4.06 MC/CUMM (3.8-5.5); Red Cell Distribution Width 20.6 % (9.3-17.3); White Blood Count 6.9 T/CUMM (4-12)
[2019-12-30 06:13] LABS: Calcium 7.7 MG/DL (8.5-10.1); Osmolality,Calculated 269.5 MOS/KG (273-304)
[2019-12-30] MEDS ORDERED: DEXTROSE 50% 25 GM/50 ML VIAL IV PRN (06:22)
[2019-12-30] MEDS ORDERED: SODIUM CHLORIDE 0.45% 1,000 ML IV SCH ×2 (08:00→15:00)
[2019-12-30] MEDS: METOPROLOL TARTRATE 25 MG TABLET PO SCH (08:32)
[2019-12-30] MEDS: MAGNESIUM CHLORIDE 64 MG TABLET PO SCH ×2 (08:32→21:19)
[2019-12-30] MEDS: SODIUM CHLORIDE 0.9% 1,000 ML IV SCH ×2 (08:32→18:16)
[2019-12-30] MEDS: PANTOPRAZOLE 40 MG TABLET PO SCH (08:32)
[2019-12-30] MEDS ORDERED: METOPROLOL TARTRATE 25 MG TABLET PO SCH (09:00)
[2019-12-30] MEDS ORDERED: DIAZEPAM 5 MG TABLET ONE (12:26)
[2019-12-30] MEDS ORDERED: diphenhydrAMINE CAP 50 MG CAPSULE ONE (12:26)
[2019-12-30] MEDS: DIGOXIN 0.125 MG TABLET PO SCH (12:31)
[2019-12-30] MEDS ORDERED: HYDROmorphone 2 MG/1 ML VIAL ONE (12:50)
[2019-12-30] MEDS ORDERED: LIDOCAINE 1% 20 ML VIAL ONE (12:50)
[2019-12-30] MEDS ORDERED: MIDAZOLAM 2 MG/2 ML VIAL ONE (12:51)
[2019-12-30] MEDS ORDERED: ASPIRIN 325 MG TABLET ONE (13:06)
[2019-12-30] MEDS ORDERED: HEPARIN 5,000 UNIT/1 ML VIAL ONE (13:25)
[2019-12-30] MEDS ORDERED: TIROFIBAN 5,000 MCG/100 ML PREMIX IV ONE (13:43)
[2019-12-30] MEDS ORDERED: LABETALOL 20 MG/4 ML SYRINGE IV ONE (14:03)
[2019-12-30] MEDS ORDERED: TIROFIBAN 5,000 MCG/100 ML PREMIX IV SCH (14:10)
[2019-12-30] MEDS ORDERED: CLOPIDOGREL 300 MG TABLET ONE (14:41)
[2019-12-30] MEDS ORDERED: DEXTROSE 50% 25 GM/50 ML VIAL IV ONE (14:48)
[2019-12-30] MEDS ORDERED: CLOPIDOGREL 300 MG TABLET PO ONE (23:30)
[2019-12-31] MEDS: ACETAMINOPHEN 325 MG TABLET PO PRN (05:35)
[2019-12-31 06:01] LABS: Basophils % 0.2 % (0.0-0.8); Eosinophils % 0.3 % (0.00-10.9); Hematocrit 25.1 VOL% (35.7-47.0); Hemoglobin 7.9 GM/DL (12.0-16.0); Immature Granulocytes Absolute 0.06 #; Lymphocytes # 1.5 10*3/uL (1.4-4.0); Lymphocytes % 24.7 % (21.3-54.2); Mean Corpuscular HGB Conc 31.5 GM/DL (32-36); Mean Platelet Volume 8.8 FL (9.6-12.0); Neutrophils % 65.8 % (38.7-73.9); Platelet Count 283 T/CUMM (130-400); Red Blood Count 3.64 MC/CUMM (3.8-5.5)
[2019-12-31 06:30] LABS: Calcium 7.7 MG/DL (8.5-10.1)
[2019-12-31 06:38] LABS: Calcium 7.7 MG/DL (8.5-10.1)
[2019-12-31] MEDS ORDERED: ASPIRIN CHEW 81 MG TABLET PO SCH (09:00)
[2019-12-31] MEDS ORDERED: CLOPIDOGREL 75 MG TABLET PO SCH (09:00)
[2019-12-31] MEDS: SODIUM CHLORIDE 0.9% 1,000 ML IV SCH ×2 (09:24→10:58)
[2019-12-31] MEDS: PANTOPRAZOLE 40 MG TABLET PO SCH (10:02)
[2019-12-31] MEDS: MAGNESIUM CHLORIDE 64 MG TABLET PO SCH (10:02)
[2019-12-31] MEDS: METOPROLOL TARTRATE 25 MG TABLET PO SCH (10:03)
[2019-12-31 11:28] VITALS: BP 103/55
== END 2019-12-31 14:08 | disposition home health service (06) | DRG 950 ==
LOC: EDBD → EDUNIT# → N.EDINP 18:24 → N.ED 18:24 → SUATTDRO 12-24 02:19 → N.TELES 12-24 14:57
PROVIDERS: ADMIT Internal Medicine; ATTEND Internal Medicine Geriatric Medicine